=== PATIENT | female | born 1940 | race Caucasian/White ===

== ENCOUNTER 2023-08-26 20:44 | Inpatient (IN) | payer SELFPAY ==
[2023-08-26 16:09] VITALS: BMI 33.6
[2023-08-26 16:13] VITALS: BP 87/67
[2023-08-26 16:49] VITALS: BP 106/65
--- NOTE | 2023-08-26 16:52 | ED.GENMED ---
History of Present Illness
<JAMEL Torre - Last Filed: 08/26/23 18:04>
General
Chief Complaint: Weakness
Source: patient
Exam Limitations: none
Time Seen by Provider: 08/26/23 16:20
Nursing documentation reviewed up to this point in time: agreed with
Travel History
Have you had any contact with someone who has COVID-19?: No
Do you have any symptoms of coronavirus? Fever > 100 degrees, chills, cough, shortness of breath, sore throat, loss of taste or smell, muscle aches, or headache?: No
History of Present Illness
History of Present Illness:
Patient is a 82-year-old female with past medical history of A-fib had the watchman's procedure, anemia edema hypertension hyperlipidemia who presents to the ER for evaluation. Patient reports for the past several days she has had sinus faction
with green drainage from her nose and has done Teladoc. She has not had a fever and is not on antibiotics. She however has been weak for the past 2 to 3 days and is unable to get out of bed. She normally takes care of her daughters who all have
Fragile X syndrome and now she is unable to do so. She feels very weak. She denies any shortness of breath.
Review of Systems
<JAMEL Torre - Last Filed: 08/26/23 18:04>
Review of Systems
Allergies reviewed?: Yes
All Other Systems: ROS reviewed and negative except as documented in HPI and ROS
Constitutional: Reports fatigue; Denies fever or chills
EENT: Reports other (sinus drainage )
Respiratory: Reports no symptoms
Cardiac: Reports no symptoms
ABD/GI: Reports no symptoms
: Reports no symptoms
Musculoskeletal: Reports other (left calf pain )
Skin: Reports no symptoms
Psychiatric: Reports no symptoms
Phy Exam
<JAMEL Torre - Last Filed: 08/26/23 18:04>
General Physical Exam
General Presentation: no apparent distress
General age: appears stated age
General Skin: warm and dry
General Habitus: elderly
General Mental: alert
General Hydration: dry mucous membranes
Cardiovascular Exam
Cardiovascular Exam: irregularly irregular
Pulmonary Exam
Pulmonary Exam: lungs clear and no respiratory distress
Neurological Exam
Neurological Exam: alert
Musculoskeletal Exam
Musculoskeletal Exam: full ROM
Skin Exam
Skin Exam: normal color and warm/dry
Psychiatric Exam
Psychiatric Exam: normal mood/affect
Course
<JAMEL Torre - Last Filed: 08/26/23 18:04>
Orders/Labs/Results
Orders:
Orders
08/26/23 Dinner
Cholesterol Lowering
Cholesterol Lowering: Sodium, 2 Gram
08/26/23 16:50
Electrocardiogram (*1) Urgent
Reason for Study: Tachycardia
08/26/23 16:51
Urinalysis Reflex To Culture Urgent
Date Specimen was Collected: 08/26/23
Time Specimen was Collected: 16:50
08/26/23 17:11
CR Chest - 2 Views Urgent
Comment:
Reason For Exam: weakness
08/26/23 17:15
Venous Doppler Lwr Ext Bilat [US Periph Venous LOWER Ext Vinicio] Urgent
Comment:
Reason For Exam: pain
08/26/23 17:19
0.9% Sodium Chloride 1000 ml [Nss] 1,000 ml IV BOLUS
08/26/23 17:43
Basic Metabolic Panel Urgent
Complete Blood Count/With Diff Urgent
Ferritin Urgent
Comment: ADD ON
Folate Urgent
Comment: ADD ON
Iron Urgent
Comment: ADD ON
Lactic Acid Q4H
Comment: CANCEL 2nd LACTIC ACID IF 1st LACTIC ACID IS LESS THAN 2
Total Iron Binding Urgent
Comment: ADD ON
Vitamin B12 Urgent
Comment: ADD ON
Blood Culture Urgent
TANA Source: Blood/Venous
Specimen Description:
08/26/23 18:00
Electrocardiogram (*1) Stat
Reason for Study: Other
Other Reason for Exam: chest pain
EKG- Treatment ONCE
08/26/23 19:06
Influenza A+B Rapid Molecular Urgent
TANA Source: Nasal Swab
Specimen Description:
08/26/23 19:07
COVID-19 Antigen Urgent
Source: Nasal Swab
08/26/23 19:10
Azithromycin 500 mg/250 ml [Zithromax Infusion] 500 mg in 250 ml IV NOW
CefTRIAXone [Rocephin] 1,000 mg IV NOW STA
Ondansetron Injectable [Zofran] 4 mg IV NOW STA
08/26/23 19:58
Add On- LAB Urgent
Tests Added?: iron, ferritin , tibc, folate b12
08/26/23 19:59
Sputum Culture [Respiratory Culture/Gram Stain] Routine
TANA Source: Sputum
Specimen Description:
08/26/23 20:02
Admit/Transfer Patient As Directed
Co-Sign Provider:
Level of Care: Inpatient admission
Assign to:: Telemetry
Physician / Group: sg mosley
Diagnosis: leukocytosis 2/2 RLL pna, karine 2/2 volume depletion, hypotension 2/2 volume
Reason for Telemetry: Arrhythmia
Date to Stop Telemetry: 08/29/23
Time to Stop Telemetry: 11:00
Reason for Hospitalization: leukocytosis 2/2 RLL pna, karine 2/2 volume depletion, hypotension 2/2 volume
Expected length of stay greater than two midnights?: Yes
ELOS- Estimated Length of Stay in days: 3
I certify the patient meets the requirements for IP care: Yes
Code Status As Directed
Resuscitation Status: Do not resuscitate
Reached after discussion with pt or family/Healthcare POA: Yes
Based on pt advanced directive or healthcare POA form: Yes
Decision communicated with: per pt
DNR Bracelet Application ONCE
08/26/23 20:07
CT Chest W/o Iv Contrast Urgent
Comment:
Reason For Exam: Pneumonia, Hiatal Hernia
08/26/23 20:21
NT-proBNP Urgent
Potassium Urgent
Procalcitonin Urgent
PCT Algorithmm Indication: Sepsis
Troponin I Urgent
Blood Culture Urgent
TANA Source: Blood/Venous
Specimen Description:
08/26/23 23:16
Acetaminophen [Tylenol] 650 mg PO Q4HPRN PRN
Aspirin Low Dose EC [Aspir Low (Enteric Coated)] 81 mg PO HS
08/26/23 23:16
Activity As Directed
Activity Level: With Assistance
Intake/ Output As Directed
Frequency: Per unit guidelines
Vital Signs As Directed
Frequency: Per unit guidelines
Weight As Directed
Frequency: Daily
Pulse Ox/spot Check [RESP] Routine
Quantity: 1
Ot Eval And Treat Routine
Pt Eval And Treat Routine
Activity Level: With Assistance
DX Deep Vein Thrombosis Video Routine
08/27/23 00:28
Cetirizine HCl [Zyrtec] 5 mg PO DAILYPRN PRN
08/27/23 00:30
Atorvastatin [Lipitor] 10 mg PO HS
08/27/23 01:00
Piperacillin/Tazo 2.25 Gram [Zosyn] 2.25 grams in 50 ml IV Q6
08/27/23 06:00
CRP [C-Reactive Protein] IN AM
Complete Blood Count/With Diff IN AM
Comprehensive Metabolic Panel IN AM
ESR [Erythrocyte Sed Rate] IN AM
08/27/23 08:00
Ascorbic Acid [Vitamin C] 1,000 mg PO DAILY
Calcium Carbonate [Oscal Benjamin 500] 500 mg PO DAILY
Cholecalciferol (Vitamin D3) [VITAMIN D3 (cholecalciferol)] 50 mcg PO DAILY
Heparin 5,000 units SC Q12
Pantoprazole [Protonix] 40 mg PO DAILY
Vitamin B Complex with C [B COMPLEX w/VITAMIN C] 1 caplet PO DAILY
08/28/23 06:00
Complete Blood Count/With Diff IN AM
Comprehensive Metabolic Panel IN AM
08/29/23 06:00
Complete Blood Count/With Diff IN AM
Comprehensive Metabolic Panel IN AM
08/29/23 11:00
DC Protocol for Telemetry ONCE
Abnormal Lab Results
08/26/23 08/26/23 08/26/23
16:51 17:43 20:21
WBC 13.3 H 10^3/uL
(4.8-10.8)
RBC 4.02 L 10^6/uL
(4.20-5.40)
Hgb 10.0 L g/dL
(12.0-16.0)
Hct 31.3 L %
(37.0-47.0)
MCV 77.9 L fL
(81.0-99.0)
MCH 24.9 L pg
(27.0-31.0)
MCHC 31.9 L g/dL
(33.0-37.0)
MPV 10.6 H fL
(7.4-10.4)
Abs Immat Gran (auto) 0.1 H 10^3/uL
(0-0.05)
Absolute Neuts (auto) 11.2 H 10^3/uL
(1.4-6.5)
Absolute Lymphs (auto) 1.0 L 10^3/uL
(1.2-3.4)
Absolute Monos (auto) 1.0 H 10^3/uL
(0.1-0.6)
Neutrophils % 84.3 H %
(42.2-75.2)
Lymphocytes % 7.5 L %
(20.5-51.1)
BUN 56 H mg/dl
(7-17)
Creatinine 2.0 H mg/dL
(0.6-1.0)
Glucose 121 H mg/dl
(70-99)
Iron 24 L ug/dl
(37-170)
TIBC 155 L ug/dl
(265-497)
% Saturation 15 L %
(20-50)
Ferritin 516.0 H ng/ml
(11.1-264.0)
Folate > 20.0 H ng/ml
(2.76-20)
Procalcitonin 5.50 H* ng/ml
(0.0-0.25)
Urine Ketones Trace A
(Negative)
Urine Bilirubin 1+ A
(Negative)
08/26/23 17:43
08/26/23 20:21
Vital Signs
Initial and Last Documented VS:
Initial Vital Signs
Temp Pulse Resp BP Pulse Ox
97.4 F 118 22 87/67 94
08/26/23 16:13 08/26/23 16:13 08/26/23 16:13 08/26/23 16:13 08/26/23 16:13
Last Documented Vital Signs
Temp Pulse Resp BP Pulse Ox
97.4 F 114 25 94/63 93
08/26/23 16:13 08/27/23 02:15 08/27/23 02:00 08/26/23 20:01 08/27/23 01:00
<JAMEL Lambert - Last Filed: 08/27/23 03:02>
Orders/Labs/Results
Orders:
Orders
08/26/23 Dinner
Cholesterol Lowering
Cholesterol Lowering: Sodium, 2 Gram
08/26/23 16:50
Electrocardiogram (*1) Urgent
Reason for Study: Tachycardia
08/26/23 16:51
Urinalysis Reflex To Culture Urgent
Date Specimen was Collected: 08/26/23
Time Specimen was Collected: 16:50
08/26/23 17:11
CR Chest - 2 Views Urgent
Comment:
Reason For Exam: weakness
08/26/23 17:15
Venous Doppler Lwr Ext Bilat [US Periph Venous LOWER Ext Vinicio] Urgent
Comment:
Reason For Exam: pain
08/26/23 17:19
0.9% Sodium Chloride 1000 ml [Nss] 1,000 ml IV BOLUS
08/26/23 17:43
Basic Metabolic Panel Urgent
Complete Blood Count/With Diff Urgent
Ferritin Urgent
Comment: ADD ON
Folate Urgent
Comment: ADD ON
Iron Urgent
Comment: ADD ON
Lactic Acid Q4H
Comment: CANCEL 2nd LACTIC ACID IF 1st LACTIC ACID IS LESS THAN 2
Total Iron Binding Urgent
Comment: ADD ON
Vitamin B12 Urgent
Comment: ADD ON
Blood Culture Urgent
TANA Source: Blood/Venous
Specimen Description:
08/26/23 18:00
Electrocardiogram (*1) Stat
Reason for Study: Other
Other Reason for Exam: chest pain
EKG- Treatment ONCE
08/26/23 19:06
Influenza A+B Rapid Molecular Urgent
TANA Source: Nasal Swab
Specimen Description:
08/26/23 19:07
COVID-19 Antigen Urgent
Source: Nasal Swab
08/26/23 19:10
Azithromycin 500 mg/250 ml [Zithromax Infusion] 500 mg in 250 ml IV NOW
CefTRIAXone [Rocephin] 1,000 mg IV NOW STA
Ondansetron Injectable [Zofran] 4 mg IV NOW STA
08/26/23 19:58
Add On- LAB Urgent
Tests Added?: iron, ferritin , tibc, folate b12
08/26/23 19:59
Sputum Culture [Respiratory Culture/Gram Stain] Routine
TANA Source: Sputum
Specimen Description:
08/26/23 20:02
Admit/Transfer Patient As Directed
Co-Sign Provider:
Level of Care: Inpatient admission
Assign to:: Telemetry
Physician / Group: sg mosley
Diagnosis: leukocytosis 2/2 RLL pna, karine 2/2 volume depletion, hypotension 2/2 volume
Reason for Telemetry: Arrhythmia
Date to Stop Telemetry: 08/29/23
Time to Stop Telemetry: 11:00
Reason for Hospitalization: leukocytosis 2/2 RLL pna, karine 2/2 volume depletion, hypotension 2/2 volume
Expected length of stay greater than two midnights?: Yes
ELOS- Estimated Length of Stay in days: 3
I certify the patient meets the requirements for IP care: Yes
Code Status As Directed
Resuscitation Status: Do not resuscitate
Reached after discussion with pt or family/Healthcare POA: Yes
Based on pt advanced directive or healthcare POA form: Yes
Decision communicated with: per pt
DNR Bracelet Application ONCE
08/26/23 20:07
CT Chest W/o Iv Contrast Urgent
Comment:
Reason For Exam: Pneumonia, Hiatal Hernia
08/26/23 20:21
NT-proBNP Urgent
Potassium Urgent
Procalcitonin Urgent
PCT Algorithmm Indication: Sepsis
Troponin I Urgent
Blood Culture Urgent
TANA Source: Blood/Venous
Specimen Description:
08/26/23 23:16
Acetaminophen [Tylenol] 650 mg PO Q4HPRN PRN
Aspirin Low Dose EC [Aspir Low (Enteric Coated)] 81 mg PO HS
08/26/23 23:16
Activity As Directed
Activity Level: With Assistance
Intake/ Output As Directed
Frequency: Per unit guidelines
Vital Signs As Directed
Frequency: Per unit guidelines
Weight As Directed
Frequency: Daily
Pulse Ox/spot Check [RESP] Routine
Quantity: 1
Ot Eval And Treat Routine
Pt Eval And Treat Routine
Activity Level: With Assistance
DX Deep Vein Thrombosis Video Routine
08/27/23 00:28
Cetirizine HCl [Zyrtec] 5 mg PO DAILYPRN PRN
08/27/23 00:30
Atorvastatin [Lipitor] 10 mg PO HS
08/27/23 01:00
Piperacillin/Tazo 2.25 Gram [Zosyn] 2.25 grams in 50 ml IV Q6
08/27/23 06:00
CRP [C-Reactive Protein] IN AM
Complete Blood Count/With Diff IN AM
Comprehensive Metabolic Panel IN AM
ESR [Erythrocyte Sed Rate] IN AM
08/27/23 08:00
Ascorbic Acid [Vitamin C] 1,000 mg PO DAILY
Calcium Carbonate [Oscal Benjamin 500] 500 mg PO DAILY
Cholecalciferol (Vitamin D3) [VITAMIN D3 (cholecalciferol)] 50 mcg PO DAILY
Heparin 5,000 units SC Q12
Pantoprazole [Protonix] 40 mg PO DAILY
Vitamin B Complex with C [B COMPLEX w/VITAMIN C] 1 caplet PO DAILY
08/28/23 06:00
Complete Blood Count/With Diff IN AM
Comprehensive Metabolic Panel IN AM
08/29/23 06:00
Complete Blood Count/With Diff IN AM
Comprehensive Metabolic Panel IN AM
08/29/23 11:00
DC Protocol for Telemetry ONCE
Abnormal Lab Results
08/26/23 08/26/23 08/26/23
16:51 17:43 20:21
WBC 13.3 H 10^3/uL
(4.8-10.8)
RBC 4.02 L 10^6/uL
(4.20-5.40)
Hgb 10.0 L g/dL
(12.0-16.0)
Hct 31.3 L %
(37.0-47.0)
MCV 77.9 L fL
(81.0-99.0)
MCH 24.9 L pg
(27.0-31.0)
MCHC 31.9 L g/dL
(33.0-37.0)
MPV 10.6 H fL
(7.4-10.4)
Abs Immat Gran (auto) 0.1 H 10^3/uL
(0-0.05)
Absolute Neuts (auto) 11.2 H 10^3/uL
(1.4-6.5)
Absolute Lymphs (auto) 1.0 L 10^3/uL
(1.2-3.4)
Absolute Monos (auto) 1.0 H 10^3/uL
(0.1-0.6)
Neutrophils % 84.3 H %
(42.2-75.2)
Lymphocytes % 7.5 L %
(20.5-51.1)
BUN 56 H mg/dl
(7-17)
Creatinine 2.0 H mg/dL
(0.6-1.0)
Glucose 121 H mg/dl
(70-99)
Iron 24 L ug/dl
(37-170)
TIBC 155 L ug/dl
(265-497)
% Saturation 15 L %
(20-50)
Ferritin 516.0 H ng/ml
(11.1-264.0)
Folate > 20.0 H ng/ml
(2.76-20)
Procalcitonin 5.50 H* ng/ml
(0.0-0.25)
Urine Ketones Trace A
(Negative)
Urine Bilirubin 1+ A
(Negative)
08/26/23 17:43
08/26/23 20:21
Leukocytosis. H/H low. Anemia, Acute renal insufficiency. Lactic acid normal at 1.5, Urine negative for infection.
Vital Signs
Initial and Last Documented VS:
Initial Vital Signs
Temp Pulse Resp BP Pulse Ox
97.4 F 118 22 87/67 94
08/26/23 16:13 08/26/23 16:13 08/26/23 16:13 08/26/23 16:13 08/26/23 16:13
Last Documented Vital Signs
Temp Pulse Resp BP Pulse Ox
97.4 F 114 25 94/63 93
08/26/23 16:13 08/27/23 02:15 08/27/23 02:00 08/26/23 20:01 08/27/23 01:00
<JAMEL Torre - Last Filed: 08/26/23 18:04>
MDM/Problems Addressed
Differential Diagnosis Includes:
not limited to: Dehydration sepsis pneumonia less likely DVT UTI
MDM/Problems Addressed:
patient is a 82-year-old female who presents for weakness for the past several days. She has recently reported she has had a sinus infection. 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 She
denies any fevers however. She does have a history of A-fib and has a watchman's procedure. will order labs/urine/us. Ultrasound ordered as patient complains of left calf pain though no obvious swelling on exam. She appears dehydrated she has
been given a liter of fluids and per history CHF. Care of patient this time transferred to JAMEL Chaudhry
<JAMEL Lambert - Last Filed: 08/27/23 03:02>
MDM/Problems Addressed
MDM/Problems Addressed:
patient is a 82-year-old female who presents for weakness for the past several days. She has recently reported she has had a sinus infection. 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 She
denies any fevers however. She does have a history of A-fib and has a watchman's procedure. will order labs/urine/us. Ultrasound ordered as patient complains of left calf pain though no obvious swelling on exam. She appears dehydrated she has
been given a liter of fluids and per history CHF. Care of patient this time transferred to JAMEL Carroll
Into see patient. Explained that her blood work shows that her Kidney function is elevated and her Chest x-ray shows possible bilateral Pneumonia Vs effusion. Will start on antibiotics and admit.
<JAMEL Lambert - Last Filed: 08/27/23 03:02>
*Radiology
Radiology exam reviewed: preliminary read by ED provider (Chest- Bilateral Pneumonia vs. Pleural effusion. ) and radiology read reviewed (US- No sonographic evidence for lower extremity venous thrombosis. )
*Critical Care Note
Total Time (30-74mins, 75-104mins- exclusive of procedures): Not Applicable
ED Attending Note
<JAMEL Torre - Last Filed: 08/26/23 18:04>
-
Portions of this chart may have been created with voice recognition software.� Occasional wrong word or��sound alike� substitutions may have occurred due to the inherent limitations of voice recognition software.
Discharge Plan
Departure
Patient Disposition: Admit
Date of Disposition: 08/26/23
Time of Disposition: 19:15
Admit to: Telemetry
Presentation/result/management discussed w/ accepting MD/DO: Hospitalist
Patient with high blood pressure during this ER visit?: No
Condition: Good
Discharge Problem:
Bilateral Pneumonia Vs Pleural effusion, Acute renal insufficiency
Interventions
Interventions:
*Risk Screen - Suicide Last Done: 08/26/23 16:13
*General Assessment Last Done: 08/26/23 16:13
*Neglect/Abuse Screening Last Done: 08/26/23 16:13
ED- Fall Risk Assessment Last Done: 08/26/23 16:55
*ED COVID-19 Vaccine History Last Done: 08/26/23 16:13
ED- Cardiac Assessment Last Done: 08/26/23 16:55
ED- Neurological Assessment Last Done: 08/26/23 16:55
ED- Pulmonary Assessment Last Done: 08/26/23 16:55
[2023-08-26 17:00] VITALS: BP 112/74
[2023-08-26 17:04] LABS: Urine Albumin Trace (Neg - Trace); Urine Bilirubin 1+ (Negative); Urine Character Slightly Cloudy (Clear); Urine Color Yellow; Urine Glucose Negative (Negative); Urine Ketone Trace (Negative); Urine Leukocyte Negative (Negative); Urine Nitrite Negative (Negative); Urine Occult Blood Negative (Negative); Urine Urobilinogen 1+ (Neg - 1+)
[2023-08-26 17:50] LABS: % Basophils 0.2 % (0-2); % Immature Granulocytes 0.5 % (0-0.5); % Lymphocytes 7.5 % (20.5-51.1); % Monocytes 7.5 % (1.7-9.3); % Neutrophils 84.3 % (42.2-75.2); Absolute Immature Granulocytes 0.1 10^3/uL (0-0.05); Absolute Neutrophils 11.2 10^3/uL (1.4-6.5); Hematocrit 31.3 % (37.0-47.0); Mean Corp Hgb Conc. 31.9 g/dL (33.0-37.0); Mean Corpuscular Hgb 24.9 pg (27.0-31.0); Mean Corpuscular Volume 77.9 fL (81.0-99.0); Mean Platelet Volume 10.6 fL (7.4-10.4); Nucleated Red Blood Cells % 0 %; Platelet Count 328 10^3/uL (130-400); Red Blood Cell Count 4.02 10^6/uL (4.20-5.40); Red Cell Dist. Width 14.2 % (11.5-14.5); White Blood Cell Count 13.3 10^3/uL (4.8-10.8)
[2023-08-26] MEDS: NSS 1000 IV (17:56)
[2023-08-26 18:04] LABS: Lactic Acid 1.5 mmol/L (0.7-2.0)
[2023-08-26 18:06] LABS: Blood Urea Nitrogen 56 mg/dl (7-17); Calcium 8.8 mg/dl (8.4-10.2); Carbon Dioxide 23 mmol/L (22-30); Chloride 102 mmol/L (98-107); Estimated Creatinine Clearance 21 ml/min; Glucose 121 mg/dl (70-99); Sodium 137 mmol/L (135-145); eGFR 24.33
[2023-08-26 19:05] VITALS: BP 110/59
--- NOTE | 2023-08-26 19:30 | HPS.HSE ---
Addendum entered and electronically signed by Eduardo Payton DO 08/26/23 21:50:
Patient seen and examined independently. Agree with findings and plan as set forth by JAMEL Guzman.
Patient is an 82y F with PMH significant for A-Fib, hypertension and CKD who presents to ED complaining of cough and nasal congestion for the past several days. Patient completed a telehealth visit and was started on azithromycin of which she
has completed 4/5 days. Patient has been caring for her daughter who recently underwent joint replacement. She has become progressively more weak and ultimately presented to the ED today for evaluation.
Patient also complains of pain in both legs - L > R. She denies any recent trauma, injury, fall, etc. She has a prior history of R ankle ORIF with retained hardware.
Ass:
RLL Pneumonia
Sepsis secondary to the above
Large Hiatal Hernia
Hypotension secondary to sepsis v hypovolemia
JETHRO on CKD III
Paroxysmal A-Fib s/p Watchman's Device
Bilateral LE Pain
DJD
Chronic Lymphedema
Chronic Iron Deficiency Anemia
Plan:
Admit for further evaluation and treatment.
Patient presents with leukocytosis, tachycardia and R base pneumonia on imaging.
BP low in the ED - responsive to fluids thus far.
IV abx, IVFs, supportive care.
Follow-up culture results.
Follow for clinical improvement.
Large hiatal hernia on CT with R shift of mediastinum.
No significant pain syndrome, heartburn, etc - consider Surgery evaluation.
Follow for improvement in renal function / changes in Hgb / etc.
PT / OT, pain control efforts for leg pain.
Original Note:
Family Physician
-
Family Physician: PHYSICIAN PRIVATE
Chief Complaint
-
Generalized weakness, nasal drainage, productive cough green in color
History of Present Illness
82-year-old female complaining of green drainage from her nose for the past several days. She reports she had a appointment with a telemetry doc and was placed on Z-Darian 4 days ago she has 1 day left. She also reports coughing up green in color for
the past 5 days. Over the past 2 to 3 days she is weak and unable to get out of bed she was so weak today. She is also complaining of pain from her knee down and right foot pain she believes from her arthritis. She reports for the past 2 weeks she
has been taking care of her daughter who had a knee replacement and was staying with her temporarily. She denies fever, chest pain, palpitations, headache, sore throat, abdominal pain, nausea, vomiting, diarrhea, urinary symptoms. SHe has past
medical history of A-fib, watchman's procedure, anemia, HTN, HLD, peripheral lymphedema , CKD 3B, iron deficiency anemia, osteoarthritis, uterine fibroids
Medical History
Past Medical History
Past Medical History: Reports Other
Additional Past Medical History:
A-fib,/watchman's procedure
Iron deficiency anemia
HTN
HLD
peripheral lymphedema
CKD 3B
osteoarthritis
uterine fibroids with removal
Past Surgical History: Reports Other
Additional Past Surgical History:
Tonsillectomy adenoidectomy 1947
Uterine fibroids removed
Fracture ankle right repair
Hammertoe repair x 3
Arthroscopy right and left knee
Right knee replacement 2004
Left knee replacement 2011
Arthrodesis of the left leg 2014
Left shoulder replacement 2017, 2019
Umbilical hernia repair and tummy tuck
Bladder lift
Cataract extraction left eye
Right total hip replacement December 2020
Right shoulder replacement 2022
Social History
Tobacco: Non-smoker
Alcohol: None
Drug: None
Personal: Single
Living: Alone
Employment: Retired
Family History
Family History: Other (4 daughters with fragile X syndrome)
Allergies / Home Medications
Allergies reflects when Allergies were last updated in [facility].
Home Medications with original date entered in [facility]
Allergy/Medication List:
Allergies
Allergy/AdvReac Type Severity Reaction Status Date / Time
cefuroxime AdvReac nausea/vomi Verified 08/26/23 16:12
ting
codeine AdvReac Nausea / Verified 08/26/23 16:12
Vomiting
fentanyl AdvReac Nausea / Verified 08/26/23 16:12
Vomiting
hydrocodone AdvReac Nausea / Verified 08/26/23 16:12
Vomiting
hydromorphone [From Dilaudid] AdvReac Nausea / Verified 08/26/23 16:12
Vomiting
levofloxacin AdvReac nausea/vomi Verified 08/26/23 16:12
ting
meperidine [From Demerol] AdvReac Nausea / Verified 08/26/23 16:12
Vomiting
morphine AdvReac nausea/vomi Verified 08/26/23 16:12
ting
oxycodone AdvReac Nausea / Verified 08/26/23 16:12
Vomiting
dust Allergy eyes itchy Uncoded 08/26/23 16:12
Home Medications
ascorbic acid (vitamin C) 500 mg tablet (Vitamin C) 1,000 mg PO DAILY ##0 12/17/20
cholecalciferol (vitamin D3) 25 mcg (1,000 unit) tablet 50 mcg PO DAILY ##0 12/17/20
labetalol 200 mg tablet 400 mg PO BID ##0 12/17/20
levocetirizine 5 mg tablet (Xyzal) 5 mg PO DAILYPRN PRN allergies 12/17/20
omeprazole 20 mg capsule,delayed release 20 mg PO DAILY 12/17/20
simvastatin 20 mg tablet 20 mg PO HS 12/17/20
vitamin B complex 1 tab PO DAILY 12/17/20
calcium carbonate 600 mg PO DAILY 12/21/20
amlodipine 5 mg tablet 5 mg PO DAILY ##0 01/11/21
aspirin 81 mg tablet,delayed release 81 mg PO HS 08/26/23
azithromycin 250 mg tablet 250 mg PO DAILY 08/26/23
hydrochlorothiazide 12.5 mg capsule 12.5 mg PO DAILY 08/26/23
Review of Systems
-
History Source: Patient
A 12 point ROS was completed and negative except as noted: Yes
Constitutional: Reports Fatigue; Denies Fever or Chills
EENT: Reports Runny Nose; Denies Sore Throat
Respiratory: Reports Cough (Green in color) and Trouble Breathing
Cardiac: Denies Chest Pain, Diaphoresis, Palpitations or Syncope
Abdomen/GI: Denies Abdominal Pain, Nausea, Vomiting, Diarrhea, Constipated, Bloody Stools or Black Stools
: Denies Dysuria, Frequency, Flank Pain, Incontinence, Difficulty Voiding or Urgency
Musculoskeletal: Reports Edema (Chronic leg lymphedema); Denies Joint Pain
Skin: Denies Itching or Rash
Neurological: Denies Dizzy, Headache or Weakness
Endocrine: Reports No Symptoms
Hematologic/Lymphatic: Reports No Symptoms
Psych: Reports Calm
Physical Exam
Vital Signs
Vital Signs
Temp Pulse Resp BP Pulse Ox
97.4 F 102 20 106/65 93
08/26/23 16:13 08/26/23 16:49 08/26/23 16:49 08/26/23 16:49 08/26/23 16:21
Physical Exam
General: Conversant and Other (Generalized weakness); No Pain or Fever
HEENT: NormoCephalic, Anicteric, Moist mucous membranes, PERRLA, [place] Conjunctivae and No Ptosis
Respiratory: Other (Diminished bilaterally with slight expiratory wheeze); No Wheezes or Rales
Cardiac: S1/S2, Irregular Rhythm (A-fib 111 bpm on monitor) and Peripheral Edema (Chronic leg lymphedema); No Murmur, Rub, Gallop or JVD
Breast: Deferred by me
GI: Soft, Non Tender, Non Distended, Normal Bowel Sounds and No Hepatosplenomegaly
Rectal: Deferred by Provider
Genito-urinary: Deferred by me
Musculoskeletal: No Clubbing, No Cyanosis, Edema, Left Lower Extremity (Chronic leg lymphedema) and Edema, Right Lower Extremity (Chronic leg lymphedema); No Edema, Left Upper Extremity or Edema, Right Upper Extremity
Skin: Warm and Dry; No Rash
Neuro: AO x 3 (But with generalized weakness), No Motor Deficits, Cranial Nerves Intact and No Sensory Deficits; No Slurred Speech, Facial Droop or Tremors
Psych: Calm
Laboratory Results
-
08/26/23 17:43
08/26/23 17:43
Laboratory Results
Lactic Acid Cancelled 08/26/23 21:15
Total Bilirubin Cancelled 08/26/23 17:43
AST Cancelled 08/26/23 17:43
ALT Cancelled 08/26/23 17:43
Alkaline Phosphatase Cancelled 08/26/23 17:43
Data Reviewed
-
Diagnostic Radiology: Report Reviewed by me
Lab Data: Labs Reviewed by me
Impression/Plan
-
Impression/plan:
Admit to telemetry
#Generalized weakness secondary to poss Right lower lobe Pna
#Recent sinus infection
-Completed 4 days out of 5 Z-Darian
93% RA
WBC 13 with left shift, afebrile, 106/65, HR 102
- COVID/FLU Neg , lactic acid normal
-Check BNP
-IV Rocephin/Zithromax given in ER tolerated rocephin
- will Start Iv Zosyn
-Check sputum culture, blood cultures x 2, procal
-Check Ct Chest
CXR:
1. MODERATE CARDIOMEGALY without evidence for acute pulmonary edema.
2. Moderate volume loss in the right lung with left to right mediastinal shift.
3. Moderate subpleural airspace opacity in the right lower lobe which is probably scarring or atelectasis.
4. Small right pleural effusion or pleural thickening in the inferior right hemithorax.
5. Moderate to large paraesophageal hiatal hernia.
# Hypotension/HTN�benign likely secondary to volume depletion
78/55 >106/65-was given 1 L NSS in ER
-Hold HCTZ, amlodipine 5 mg daily
-Hold labetalol 40 mg twice daily
- cont Iv Nss 80 cc/hr
#JETHRO on CKD stage IIIb�4
Creat 2, creat 1.27 November 2020
-IV NSS 1 L given in ER
-Follow BMP
-Hold HCTZ
# Chronic peripheral lymphedema
-PT/OT/case management eval
Peripheral ultrasounds bilateral negative for DVT
#Left leg pain/right foot pain likely secondary to OA
#Osteoarthritis hx
-Continue PATTERN GENERATOR OPERATOR Tylenol as needed
-Continue vitamin D3/vitamin C
- check ESR,CRP
#A-fib/Watchman device
-Hold labetalol 40 mg twice daily due to hypotension
-Continue aspirin 81 mg at bedtime
#Chronic iron deficiency anemia
Hgb 10, MCV 77.9-appears near baseline from 2020
-Will check iron panel, B12, folate
-Continue B complex
#GERD
-Continue omeprazole 20 mg daily, calcium carbonate 600 mg daily
#HLD
-Continue simvastatin 20 mg at bedtime
#Uterine fibroids with removal
DVT prophylaxis
Subcu heparin
DNR per patient
[2023-08-26 19:45] LABS: COVID-19 Antigen Negative (Negative)
[2023-08-26] MEDS: ZOFRAN 4 MG IV (19:59)
[2023-08-26] MEDS: ROCEPHIN 1000 MG IV (19:59)
[2023-08-26] MEDS: ZITHROMAX INFUSION 250 IV (20:00)
[2023-08-26 20:01] VITALS: BP 94/63
[2023-08-26 20:53] LABS: NT-proBNP 8350 pg/ml; Troponin I 0.016 ng/ml
[2023-08-26 21:04] LABS: Potassium 4.4 mmol/L (3.5-5.1)
[2023-08-26 21:12] LABS: Iron 24 ug/dl (37-170)
[2023-08-26 21:22] LABS: Percent Saturation 15 % (20-50); Total Iron Binding Capacity 155 ug/dl (265-497)
[2023-08-26 22:14] LABS: Folate > 20.0 ng/ml (2.76-20); Vitamin B12 913 pg/ml (239-931)
[2023-08-27] VITALS (12 sets, daily range): BP systolic 91–128; BP diastolic 40–100
[2023-08-27] MEDS: ASPIR LOW (ENTERIC COATED) 81 MG PO (01:09)
[2023-08-27] MEDS: ZOSYN 50 IV ×5 (01:09→23:35)
[2023-08-27] MEDS: LIPITOR 10 MG PO ×2 (01:09→21:31)
[2023-08-27 06:51] LABS: % Basophils 0.2 % (0-2); % Eosinophils 0.2 % (0-6); % Immature Granulocytes 0.6 % (0-0.5); % Lymphocytes 11.3 % (20.5-51.1); % Monocytes 7.4 % (1.7-9.3); % Neutrophils 80.3 % (42.2-75.2); Absolute Immature Granulocytes 0.1 10^3/uL (0-0.05); Absolute Lymphocytes 1.4 10^3/uL (1.2-3.4); Absolute Monocytes 0.9 10^3/uL (0.1-0.6); Mean Corp Hgb Conc. 32.9 g/dL (33.0-37.0); Mean Corpuscular Hgb 25.2 pg (27.0-31.0); Mean Corpuscular Volume 76.6 fL (81.0-99.0); Mean Platelet Volume 10.7 fL (7.4-10.4); Nucleated Red Blood Cells % 0 %; Platelet Count 361 10^3/uL (130-400); Red Blood Cell Count 2.74 10^6/uL (4.20-5.40); Red Cell Dist. Width 13.9 % (11.5-14.5); White Blood Cell Count 12.5 10^3/uL (4.8-10.8)
[2023-08-27 07:06] LABS: Hemoglobin 6.9 g/dL (12.0-16.0)
[2023-08-27 07:22] LABS: ALT (SGPT) 29 U/L (0-35); AST (SGOT) 61 U/L (14-36); Albumin 2.7 g/dl (3.5-5.0); Alkaline Phosphatase 153 U/L (38-126); Blood Urea Nitrogen 61 mg/dl (7-17); Calcium 8.7 mg/dl (8.4-10.2); Carbon Dioxide 17 mmol/L (22-30); Chloride 106 mmol/L (98-107); Estimated Creatinine Clearance 21 ml/min; Glucose 103 mg/dl (70-99); Sodium 138 mmol/L (135-145); Total Bilirubin 0.9 mg/dl (0.2-1.3); Total Protein 5.3 g/dl (6.3-8.2); eGFR 24.33
[2023-08-27 07:48] LABS: C-Reactive Protein > 270.00 mg/L (0.0-10.00)
[2023-08-27 07:52] LABS: Erythrocyte Sed Rate 14 mm/hour (0-20)
[2023-08-27] MEDS: HEPARIN SC (08:30)
--- NOTE | 2023-08-27 09:38 | W.PN.HOSP.TC ---
Addendum entered and electronically signed by Michel Salmeron MD 08/27/23 23:36:
I saw and evaluated the patient. I reviewed the resident�s note and agree with findings and plan as documented in the resident�s note. Omi complains of b/l knee joint pain left>right. states its chronic. notes melena recently. Full 12 point ROS
reviewed and negative except as documented Exam: Vitals reviewed in chart GEN- NAD heart RRR lungs clear abd soft LE right knee NTTP left knee mild swelling noted no redness or warmth
# Sepsis
Secondary to right lower lobe pneumonia
chest CT- 08/25- Small right and tiny left pleural effusions.
Mild right lower lobe consolidation which may represent atelectasis or pneumonia
Moderate left lower lobe atelectasis versus scarring.
Large hiatal hernia. Stable
- Continue IV fluids
- DC Zosyn change to rocephin/doxy in am
-Follow CBC
-Follow temperature curve
- leukocytosis resolving
#Right lower lobe pneumonia
-Continue antibiotics
#Acute on chronic anemia h/o melena steroid use
- Hemoglobin dropped to 6.9 from 10 overnight-lab error.
- Repeat H&H showed normal baseline hemoglobin 10.2
- c/s GI- for EGD in am
- NPO pMN
- cont PPI gtt per GI
#Hypotension
-Secondary to sepsis
-Continue fluids
-Hold hydrochlorothiazide
#left knee pain
-History of knee replacement
-check knee x-ray
- doubt septic joint
#JETHRO on CKD stage III
- cr @ 2.0 unknown baseline
- Likely prerenal
- Continue fluids
- Hold hydrochlorothiazide
#Chronic peripheral edema
-Bilateral peripheral vascular ultrasound negative for DVT
#A-fib status post Watchman device
-Hold labetalol due to hypotension
-hold aspirin 81 mg
#GERD
Continue PPI gtt, calcium carbonate
#Hyperlipidemia
atorvastatin
#HTN
Hold labetalol due to hypotension
DVT prophylaxis heparin
CODE STATUS: Full code
Anticipated Discharge: > 48 hours
Time spent coordinating care, review of plan of care with resident, review of records, med rec, consults, notes, labs, rads, d/w nursing � 59 mins
Original Note:
Today's Communication/Plan
-
Continue antibiotics
Continue fluids
Hold antihypertensives
Assessment / Plan
Assessment / Plan
Acute problems
Sepsis
Right lower lobe pneumonia
Acute on chronic anemia
Hypotension
left knee pain
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
Chronic peripheral edema
A-fib status post Watchman device
chronic iron deficiency anemia
GERD
Hyperlipidemia
#Sepsis
Secondary to right lower lobe pneumonia
Leukocytosis, hypotension, tachycardia, tachypnea on presentation
cxr: 08/26/2023: MODERATE CARDIOMEGALY without evidence for acute pulmonary edema. Moderate volume loss in the right lung with left to right mediastinal shift. Moderate subpleural airspace opacity in the right lower lobe which is probably scarring
or atelectasis. Small right pleural effusion or pleural thickening in the inferior right hemithorax. Moderate to large paraesophageal hiatal hernia.
- Continue IV fluids
- Continue Zosyn
-Follow CBC
-Follow temperature curve
#Right lower lobe pneumonia
-Continue antibiotics
#Acute on chronic anemia
Hemoglobin dropped to 6.9 from 10 overnight.
Repeat H&H showed normal baseline hemoglobin 10.2
-Likely lab error
-Stop every 4 H&H
#Hypotension
-Secondary to sepsis
-Continue fluids
-Hold hydrochlorothiazide
#left knee pain
-History of knee replacement
- knee x-ray
#JETHRO on CKD stage III
-Likely prerenal
-Continue fluids
-Hold hydrochlorothiazide
#Chronic peripheral edema
-Bilateral peripheral vascular ultrasound negative for DVT
#A-fib status post Watchman device
-Hold labetalol due to hypotension
-Continue aspirin 81 mg
#chronic anemia
Chronic, at baseline
Iron panel: likely component of anemia of chronic disease
Recent history of dark stools
GI consult: Clear liquid diet, pending EGD tomorrow
#GERD
Continue omeprazole, calcium carbonate
#Hyperlipidemia
atorvastatin
#HTN
Hold labetalol due to hypotension
DVT prophylaxis heparin
CODE STATUS: Full code
Anticipated Discharge: > 48 hours
Subjective/Interval History
-
Date of Service: August 27, 2023
Complains of pain in left knee and leg, and generalized weakness
Pt states she was prescribed 5-day course of prednisone for respiratory symptoms within the last week. Noticed dark stools after 3 days of steroid therapy. Stop steroid therapy and dark stools resolved.
Objective Data
-
Labs:
Laboratory Results
08/27/23
06:29
WBC 12.5 H
Hgb 6.9 L* D
Hct 21.0 L
Plt Count 361
Sodium 138
Potassium 4.0
Chloride 106
Carbon Dioxide 17 L
BUN 61 H
Creatinine 2.0 H
Glucose 103 H
Calcium 8.7
Total Bilirubin 0.9
AST 61 H
ALT 29
Alkaline Phosphatase 153 H
Vital Signs:
Vital Signs
Temp Pulse Resp BP Pulse Ox
97.4 F 102 21 97/68 95
08/26/23 16:13 08/27/23 06:42 08/27/23 06:42 08/27/23 06:42 08/27/23 06:42
Review of Systems
-
History Source: Patient
Constitutional: Reports Fatigue
EENT: Reports Hearing Loss (Right ear)
Respiratory: Reports Cough
Cardiac: Reports No Symptoms; Denies Chest Pain, Palpitations or Syncope
Abdomen/GI: Reports No Symptoms; Denies Abdominal Pain, Nausea, Vomiting, Diarrhea, Constipated or Black Stools
Genitourinary: Reports No Symptoms; Denies Dysuria, Difficulty Voiding or Bleeding
Musculoskeletal: Reports Joint Pain (Left knee) and Edema (Bilateral lower extremity edema)
Neuro: Denies Dizzy or Headache
Physical Exam
-
General: Other (Appears to be in mild discomfort)
HEENT: Normocephalic, Atraumatic, Anicteric and Other (Left ear with cerumen obscuring tympanic membrane, right ear with fleshy obstruction of auditory canal); Negative Moist Mucous Membranes
Respiratory: Other (Right lower lobe crackles, reduced lung sounds bilaterally)
Cardiac: S1/S2, Irregular Rhythm and Tachycardic
GI: Soft, Nontender, Nondistended and Normal Bowel Sounds
Genito-urinary: Other (PureWick catheter)
Musculoskeletal: No Clubbing, No Cyanosis, Edema, Right Lower Extrem, Edema, Left Lower Extrem and Other (Left knee, swollen, tender, slightly warm to the touch)
Skin: Warm and Dry; Negative Rash, Ulcers or Jaundice
Neuro: Awake, Alert and Oriented
Psych: Calm
[2023-08-27] MEDS: B COMPLEX w/VITAMIN C 1 CAPLET PO (10:24)
[2023-08-27] MEDS: PROTONIX 40 MG PO (10:25)
[2023-08-27] MEDS: OSCAL CAL 500 500 MG PO (10:25)
[2023-08-27] MEDS: VITAMIN D3 (cholecalciferol) 50 MCG PO (10:26)
[2023-08-27] MEDS: VITAMIN C 1000 MG PO (10:26)
[2023-08-27] MEDS: NSS 1000 IV ×2 (10:28→18:24)
--- NOTE | 2023-08-27 10:49 | CON.GI ---
Addendum entered and electronically signed by Paco Wood MD 08/27/23 12:52:
Patient seen and examined, agree with nurse practitioner note. Patient is an 82-year-old female with longstanding history of anemia who presents with hypotension and shortness of breath. CT scan shows large hiatal hernia along with probable
pneumonia. She was initially hypotensive the did respond to fluids. Her hemoglobin on admission was 10 with a drop to 6.9, the repeat without transfusion was 10.2. She had noticed black stools recently when she was on prednisone for cough and
sinus symptoms though has been intermittent. Her last endoscopy and colonoscopy were at [facility] on about 6 years ago by report. She denies any dysphagia, vomiting, abdominal pain. On exam she has no abdominal tenderness. At this point the
hemoglobin in the sixes was likely lab error, as without transfusion is around 10. She does have hiatal hernia, and noticed melena on steroids, with chronic iron deficiency, likely Ajit's erosions though given melena and hypotension on admission
we will plan EGD tomorrow as she ate breakfast today. Will continue supportive care for her pneumonia and pulmonary issues.
Addendum entered and electronically signed by JAMEL Mims 08/27/23 12:27:
also discussed if EGD neg consider colonoscopy
Addendum entered and electronically signed by JAMEL Mims 08/27/23 12:23:
t/c transfusion-- repeat hbg to be completed soon. CRP>270, procal 5.5
Original Note:
Consultation
-
Date/Time Consultation Requested: 08/27/23 1000
Date/Time Consultation Performed: 08/27/23 1040
Requesting Provider: Yenni Griffin MD
Performing Provider: JAMEL Levy, Denver Wood MD
Reason for Consultation: anemia
Medical History
Chief Complaint / HPI
Chief Complaint: black stools, leg pain
History of Present Illness:
Pt is a 82yo with long standing iron deficiency anemia, large HH, CKD, HTN, hypercholesterolemia, lymphadenopathy, CKD, osteoarthritis, uterine fibroid with follow with Dr. Terrell from Hematology at [place] and last GI follow with [facility]. She
now presents with recent sinus symptoms with antibiotic and steroid treatment. She admits to onset of black stool with steroid use. She phone her pharmacy for side effects and recommend review with PCP. She now presents 6/ with cough and
congestion with CT on admission with concern for atelectasis vs PNA and large HH. On admission hbg 10 with drop to 6.9 after admission.
Pt states after black stools with steroids stool then did turn back to brown. Pt did have some nausea also with antibiotics. hx GERD on chronic PPI. She denies dysphagia, vomiting, abdominal pain, diarrhea, constipation or red blood in stools.
No NSAID use. Last EGD/colon about 6 years ago.
Past Medical History
Past Medical History: Arrhythmias (afib with prior watchman), HTN, Hypercholesterolemia, Renal Failure (CKD) and Other (iron deficiency anemia with hx iron infusions, peripheral lymphedema, CKD, osteoarthritis, uterine fibroids)
Past Surgical History: Orthopedic (knee arthroscopy, R - TKR, left shoulder repair 2017 and 2019 right TKR, right shoulder replacement ), Tonsilectomy and Other (uterine fibroid removal, hammertoe repair, umbilical hernia repair and tummy tuck,
bladder lift, cararacts of eyes)
Social History
Tobacco: Non-Smoker
Alcohol: Occasional (minimal )
Drug: None
Living: Alone
Family History
Family History: Other (no family hx colon CA or polyps )
Allergies / Home Medications
Allergy/AdvReac Type Severity Reaction Status Date / Time
cefuroxime AdvReac nausea/vomi Verified 08/26/23 16:12
ting
codeine AdvReac Nausea / Verified 08/26/23 16:12
Vomiting
fentanyl AdvReac Nausea / Verified 08/26/23 16:12
Vomiting
hydrocodone AdvReac Nausea / Verified 08/26/23 16:12
Vomiting
hydromorphone [From Dilaudid] AdvReac Nausea / Verified 08/26/23 16:12
Vomiting
levofloxacin AdvReac nausea/vomi Verified 08/26/23 16:12
ting
meperidine [From Demerol] AdvReac Nausea / Verified 08/26/23 16:12
Vomiting
morphine AdvReac nausea/vomi Verified 08/26/23 16:12
ting
oxycodone AdvReac Nausea / Verified 08/26/23 16:12
Vomiting
dust Allergy eyes itchy Uncoded 08/26/23 16:12
�Medication �Instructions �Recorded
ascorbic acid (vitamin C) 500 mg 1,000 mg PO DAILY ##0 12/17/20
tablet (Vitamin C)
cholecalciferol (vitamin D3) 25 50 mcg PO DAILY ##0 12/17/20
mcg (1,000 unit) tablet
labetalol 200 mg tablet 400 mg PO BID ##0 12/17/20
levocetirizine 5 mg tablet (Xyzal) 5 mg PO DAILYPRN PRN allergies 12/17/20
omeprazole 20 mg capsule,delayed 20 mg PO DAILY 12/17/20
release
simvastatin 20 mg tablet 20 mg PO HS 12/17/20
vitamin B complex 1 tab PO DAILY 12/17/20
calcium carbonate 600 mg PO DAILY 12/21/20
amlodipine 5 mg tablet 5 mg PO DAILY ##0 01/11/21
aspirin 81 mg tablet,delayed 81 mg PO HS 08/26/23
release
azithromycin 250 mg tablet 250 mg PO DAILY 08/26/23
hydrochlorothiazide 12.5 mg capsule 12.5 mg PO DAILY 08/26/23
Review of Systems
-
History Source: Patient
Constitutional: Reports No Symptoms
EENT: Reports No Symptoms
Respiratory: Reports Cough
Cardiac: Reports No Symptoms
Abdomen/GI: Reports Nausea and Black Stools
: Reports No Symptoms
Musculoskeletal: Reports Other (left leg pain)
Neurological: Reports Weakness
Endocrine: Reports No Symptoms
Hematologic/Lymphatic: Reports No Symptoms
Vital Signs
Temp Pulse Resp BP Pulse Ox
97.4 F 110 28 91/40 92
08/26/23 16:13 08/27/23 10:30 08/27/23 10:30 08/27/23 10:00 08/27/23 10:30
Physical Exam
Exam
General: Well Developed, Well Nourished and No Apparent Distress
HEENT: Normocephalic
Respiratory: Other (minimal shortness of breath )
Cardiac: Other (tachy)
GI: Soft, Non Tender and Non Distended
Genito-urinary: No Costovertebral Tender
Musculoskeletal: No Clubbing and No Cyanosis
Skin: Warm and Dry
Neuro: Awake, Alert and AO x 3
Psych: Calm
Results
WBC 12.5 10^3/uL (4.8-10.8) H 08/27/23 06:29
Hgb 6.9 g/dL (12.0-16.0) L* D 08/27/23 06:29
Hct 21.0 % (37.0-47.0) L 08/27/23 06:29
MCV 76.6 fL (81.0-99.0) L 08/27/23 06:29
Plt Count 361 10^3/uL (130-400) 08/27/23 06:29
Absolute Neuts (auto) 10.0 10^3/uL (1.4-6.5) H 08/27/23 06:29
Sodium 138 mmol/L (135-145) 08/27/23 06:29
Potassium 4.0 mmol/L (3.5-5.1) 08/27/23 06:
Chloride 106 mmol/L (98-107) 08/27/23 06:29
Carbon Dioxide 17 mmol/L (22-30) L 08/27/23 06:29
BUN 61 mg/dl (7-17) H 08/27/23 06:29
Creatinine 2.0 mg/dL (0.6-1.0) H 08/27/23 06:
Calcium 8.7 mg/dl (8.4-10.2) 08/27/23 06:29
Total Bilirubin 0.9 mg/dl (0.2-1.3) 08/27/23 06:29
AST 61 U/L (14-36) H 08/27/23 06:29
ALT 29 U/L (0-35) 08/27/23 06:29
Alkaline Phosphatase 153 U/L (38-126) H 08/27/23 06:29
Diagnostic Image Results:
08/26/23 CT Chest W/o Iv Contrast
Small right and tiny left pleural effusions.
Mild right lower lobe consolidation which may represent atelectasis or pneumonia. Stable
Moderate left lower lobe atelectasis versus scarring.
Large hiatal hernia. Stable
Prior GI Procedures:
EGD: 6 years ago [facility]
Colonoscopy: 6 years ago [facility]
Assessment / Plan
-
Pt is a 82yo with long standing iron deficiency anemia, large HH, CKD, HTN, hypercholesterolemia, lymphadenopathy, CKD, osteoarthritis, uterine fibroid with follow with Dr. Terrell from Hematology at [place] and last GI follow with [facility]. She
now presents with recent sinus symptoms with antibiotic and steroid treatment. She admits to onset of black stool with steroid use. She phone her pharmacy for side effects and recommend review with PCP. She now presents 08/25 with cough and
congestion with CT on admission with concern for atelectasis vs PNA and large HH. On admission hbg 10 with drop to 6.9 after admission with BUN up to 61.
-anemia with iron decency with recent black stool
-concern for PNA on admission with sepsis- tachycardia/hypotension
-large HH
-recent antibiotics/steroid for sinusitis
-leg pain
other medical problems:
-CKD
-HTN
-hypercholesterolemia
-fibroids
-osteoarthritis
PLAN:
Etiology of anemia with recent black stools related to hiatal hernia with ajit lesion, PUD with recent steroid use vs other
plan for EGD in AM as pt ate breakfast this am
cont PPI with drop in hbg and rise in BUN will change to PPI gtt
trend hbg
ok for clear diet today then NPO in AM
work up per hospitalist for leg pain
cont abx for concern for PNA
will follow
-
-
Thank you for consultation and allowing me to participate in the patient's care. Please call the traffic control operator GI physician during the after hours with any questions or concerns.
[2023-08-27 12:26] LABS: Hematocrit 30.9 % (37.0-47.0)
[2023-08-27 12:37] LABS: Hemoglobin 10.2 g/dL (12.0-16.0)
[2023-08-27] MEDS: PROTONIX 100 IV ×2 (14:05→23:18)
[2023-08-27] MEDS: TRANDATE 200 MG PO (21:30)
[2023-08-27] MEDS: TYLENOL 650 MG PO (21:30)
[2023-08-27] MEDS: ZYRTEC 5 MG PO (21:31)
[2023-08-27] MEDS: NSS IV (23:34)
[2023-08-28] VITALS (11 sets, daily range): BP systolic 18–143; BP diastolic 63–88; PULSE 109–147; O2SAT 95; BMI 34.1
--- NOTE | 2023-08-28 01:46 | PTCARENOTE ---
At start of shift, pt's HR sustained >120s in a-fib, BP 123/75, afebrile. JAMEL Hansen notified, ordered x1 200mg Labetalol, admin at approx 2130 (refer to MAY). Pt HR now reading 100s, still a-fib.
Pt uncooperative at times with care, refusing to get OOB. Orthostatic vital signs ordered - pt refusing to complete. JAMEL Hansen made aware.
Call novoa within reach.
[2023-08-28] MEDS: NSS 1000 IV ×2 (02:24→11:11)
[2023-08-28] MEDS: ZOSYN 50 IV ×3 (05:24→17:07)
[2023-08-28 07:13] LABS: % Basophils 0.2 % (0-2); % Eosinophils 1.8 % (0-6); % Immature Granulocytes 0.6 % (0-0.5); % Lymphocytes 9.6 % (20.5-51.1); % Neutrophils 80.8 % (42.2-75.2); Absolute Eosinophils 0.2 10^3/uL (0-0.7); Absolute Immature Granulocytes 0.1 10^3/uL (0-0.05); Absolute Lymphocytes 0.8 10^3/uL (1.2-3.4); Absolute Monocytes 0.6 10^3/uL (0.1-0.6); Absolute Neutrophils 6.9 10^3/uL (1.4-6.5); Hematocrit 30.1 % (37.0-47.0); Hemoglobin 10.1 g/dL (12.0-16.0); Mean Corp Hgb Conc. 33.6 g/dL (33.0-37.0); Mean Corpuscular Hgb 25.3 pg (27.0-31.0); Mean Corpuscular Volume 75.3 fL (81.0-99.0); Mean Platelet Volume 10.5 fL (7.4-10.4); Nucleated Red Blood Cells % 0 %; Platelet Count 338 10^3/uL (130-400); Red Cell Dist. Width 14.3 % (11.5-14.5); White Blood Cell Count 8.5 10^3/uL (4.8-10.8)
[2023-08-28] MEDS: B COMPLEX w/VITAMIN C PO ×2 (07:35→07:39)
[2023-08-28] MEDS: OSCAL CAL 500 PO ×2 (07:35→07:40)
[2023-08-28] MEDS: VITAMIN D3 (cholecalciferol) PO ×2 (07:36→07:40)
[2023-08-28] MEDS: VITAMIN C PO ×2 (07:36→07:40)
[2023-08-28 07:41] LABS: ALT (SGPT) 45 U/L (0-35); AST (SGOT) 86 U/L (14-36); Albumin 2.6 g/dl (3.5-5.0); Alkaline Phosphatase 231 U/L (38-126); Blood Urea Nitrogen 56 mg/dl (7-17); Calcium 8.9 mg/dl (8.4-10.2); Carbon Dioxide 20 mmol/L (22-30); Chloride 108 mmol/L (98-107); Estimated Creatinine Clearance 24 ml/min; Glucose 104 mg/dl (70-99); Potassium 3.8 mmol/L (3.5-5.1); Sodium 138 mmol/L (135-145); Total Bilirubin 0.9 mg/dl (0.2-1.3); Total Protein 5.1 g/dl (6.3-8.2); eGFR 29.57
--- NOTE | 2023-08-28 08:12 | W.PN.HOSP.TC ---
Addendum entered and electronically signed by Michel Salmeron MD 08/28/23 23:22:
I saw and evaluated the patient. I reviewed the resident�s note and agree with findings and plan as documented in the resident�s note. Patient states she wants to go home but too weak to even sit up. Seen post EGD. called by nursing re rapid a fib
with RVR Full 12 point ROS reviewed and negative except as documented Exam: Vitals reviewed in chart GEN- NAD heart RRR lungs clear abd soft LE right knee NTTP left knee minimal swelling noted no redness or warmth
# Sepsis with GPC bacteremia
- possible contaminant
- repeat blood cx in am
- chest CT- 08/25- Small right and tiny left pleural effusions.
- Mild right lower lobe consolidation
- DC IV fluids
- add vanco to zosyn until blood cx verified
- Follow CBC
- Follow temperature curve
- leukocytosis resolved
# Rapid A-fib with RVR status post Watchman device
- metoprolol IV x1 now and prn
- restart labetalol
- restart aspirin
#Acute on chronic anemia h/o melena s/p steroid use
- Hemoglobin dropped to 6.9 from 10 overnight-lab error.
- Repeat H&H showed normal baseline hemoglobin 10.2
- EGD- 08/27- large hiatal hernia otherwise normal esophagus
- DC PPI gtt
#Hypotension
- resolved
- DC fluids
- Hold hydrochlorothiazide
#left knee pain
- History of knee replacement
- check knee x-ray - no fx
- doubt septic joint
#JETHRO on CKD stage III
- improved cr 1.7
- cr @ 2.0 unknown baseline
- Likely prerenal
- DC IVF
- Hold hydrochlorothiazide
#Chronic peripheral edema
-Bilateral peripheral vascular ultrasound negative for DVT
# Transaminitis-
- repeat in am
- hold atorvastatin
#GERD
restart PPI, calcium carbonate
#Hyperlipidemia
- hold atorvastatin
#HTN
- cont labetolol and hold amlodopine
DVT prophylaxis restart heparin
CODE STATUS: Full code
Dispo PT OT eval, CM c/s- will likely need SNF on DC
Anticipated Discharge: > 48 hours
Time spent coordinating care, review of plan of care with resident, review of records, med rec, consults, notes, labs, rads, d/w nursing � 55 mins
Original Note:
Today's Communication/Plan
-
Continue IV abx
Discharge planning
Assessment / Plan
Assessment / Plan
Acute problems
Sepsis
Right lower lobe pneumonia
Acute on chronic anemia
Hypotension
left knee pain
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
Chronic peripheral edema
A-fib status post Watchman device
chronic iron deficiency anemia
GERD
Hyperlipidemia
#Sepsis
Secondary to right lower lobe pneumonia
Leukocytosis, hypotension, tachycardia, tachypnea on presentation
cxr: 08/26/2023: MODERATE CARDIOMEGALY without evidence for acute pulmonary edema. Moderate volume loss in the right lung with left to right mediastinal shift. Moderate subpleural airspace opacity in the right lower lobe which is probably scarring
or atelectasis. Small right pleural effusion or pleural thickening in the inferior right hemithorax. Moderate to large paraesophageal hiatal hernia.
- Leukocytosis now resolved
- Continue IV fluids
- Continue Zosyn
-Follow CBC
-Follow temperature curve
#Right lower lobe pneumonia
-Continue antibiotics
#Acute on chronic anemia
Hemoglobin dropped to 6.9 from 10 overnight.
Repeat H&H showed normal baseline hemoglobin 10.2
-Likely lab error
-Stop Q4 H&H
#Hypotension
Secondary to sepsis
-Resolved today
-Continue fluids
-hold hydrochlorothiazide for JETHRO
Joint pain
-History of multiple joint replacements
-Knee pain: knee x-ray 08/27/2023: Right total knee replacement with small suprapatellar joint effusion
-Right foot pain
-PT consult
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
Improved, CR 1.7. Last known cr 1.4 in 2020
- Likely prerenal
- Hold hydrochlorothiazide
Elevated transaminases:
Billirubin stable
AST 86, ALT 45, Alk phos: 231
-Hold statin
-AM CBC
#Chronic peripheral edema
-Bilateral peripheral vascular ultrasound negative for DVT
#A-fib status post Watchman device
-Continue labetalol now that blood pressure is stable
-Continue aspirin 81 mg
-Metoprolol tartrate 5mg IV for HR>120
#chronic anemia
Chronic, at baseline
Iron panel: likely component of anemia of chronic disease
Recent history of dark stools
GI consult: EGD today
#GERD
Continue omeprazole, calcium carbonate
#Hyperlipidemia
hold atorvastatin for elevated transaminases
#HTN
Continue labetalol
DVT prophylaxis heparin
CODE STATUS: Full code
Anticipated Discharge: Within 24 hours
Subjective/Interval History
-
Date of Service: August 28, 2023
Messaged by nurse this morning about HR to 120s.
Objective Data
-
Labs:
Laboratory Results
08/28/23
06:59
WBC 8.5
Hgb 10.1 L
Hct 30.1 L
Plt Count 338
Sodium 138
Potassium 3.8
Chloride 108 H
Carbon Dioxide 20 L
BUN 56 H
Creatinine 1.7 H
Glucose 104 H
Calcium 8.9
Total Bilirubin 0.9
AST 86 H
ALT 45 H
Alkaline Phosphatase 231 H
Vital Signs:
Vital Signs
Temp Pulse Resp BP Pulse Ox
97.3 F 105 16 143/76 94
08/28/23 07:30 08/28/23 07:30 08/28/23 07:30 08/28/23 07:30 08/28/23 07:30
I&O
08/27/23 08/28/23 08/29/23
06:59 06:59 06:59
Intake Total 240 / 240
Output Total 350 / 350
Balance -110 / -110
Review of Systems
-
History Source: Patient
Constitutional: Reports Weakness
Respiratory: Denies Trouble Breathing
Cardiac: Denies Chest Pain or Syncope
Abdomen/GI: Denies Abdominal Pain, Nausea, Vomiting, Diarrhea, Constipated, Bloody Stools or Black Stools
Genitourinary: Denies Dysuria or Difficulty Voiding
Neuro: Denies Dizzy or Headache
Physical Exam
-
General: Comfortable
Respiratory: Crackles (RLL) and Non Labored Respirations; Negative Accessory Resp Muscle Use
Cardiac: S1/S2 and Irregular Rhythm; Negative Murmur
GI: Soft, Nontender, Nondistended and Normal Bowel Sounds
Musculoskeletal: No Clubbing, No Cyanosis, Edema, Right Lower Extrem and Edema, Left Lower Extrem
Skin: Warm and Dry; Negative Lesions or Jaundice
Neuro: Awake, Alert and Oriented
Psych: Calm
--- NOTE | 2023-08-28 10:21 | W.PN.UPDATE ---
Update Note
Progress Note Update
EGD with large hiatal hernia (approx 7cm) but no ulcers or erosions seen.
tortuous esophagus
with hgb being stable and anemia of chronic disease and normal EGD would not pursue other investigation at this time.
keep on PPI for now
will sign off call with questions
[2023-08-28] MEDS: DUONEB 3 ML INH (10:30)
[2023-08-28] MEDS: PROTONIX 100 IV ×2 (11:07→21:44)
[2023-08-28] MEDS: TRANDATE 400 MG PO ×2 (11:08→21:45)
[2023-08-28] MEDS: LOPRESSOR 5 MG IV (13:42)
--- NOTE | 2023-08-28 15:57 | CM ---
Reviewed chart, attempted to meet with patient however she was asleep and did not wake. Called patient's daughter to obtain information for assessment. Patient's daughter stated that patient lives alone in a townhouse with around 5 steps to enter.
She has no DME per her daughter. She drives and can get to her appointments and do all of her own shopping.
She has never had VN services nor has she been to a SNF. (Per daughter)
Patient has a prescription plan and uses [facility] in [place] for all of her medications.
Patient's PCP is unlisted.
Patient's daughter stated that patient will want to return home when stable and does not think that she will have any needs.
Reviewed patient's PT and OT and patient is not near baseline level of functioning. Both recommending SNF. Will f/u with patient to obtain referrals for SNF.
Plan: Case management will continue to follow and assist with discharge planning. Patient will need SNF when cleared for discharge.
[2023-08-28] MEDS: VANCOCIN 540 MG IV (18:15)
--- NOTE | 2023-08-28 19:05 | PHA.VAN.IN ---
Assessment
- Assessment
Renal Function: Appears elevated from baseline (12/21/20 BASELINE SCR: 1.4)
Concomitant Antimicrobials: ZOSYN
- Previous Dosing Experience
Previous Regimen: NONE
Plan
- Plan
Initial / Loading Dose: 2GM
Maintenance Regimen: DOSING BY RANDOM LEVELS
Monitoring: RANDOM VANCOMYCIN LEVEL 08/29/23 AM
Pharmacokinetics Vancomycin I
- -
Patient Age: 82
Patient Sex: Female
Vancomycin Day #: 1
Indication: Bacteremia (PNA)
Requesting Provider: GEOFF
Height / Weight:
Height 5 ft 1 in
Actual Weight 81.902 kg
- Vital Signs / Lab Results
Temp Pulse Resp BP Pulse Ox
97.7 F 127 16 120/88 94
08/28/23 15:03 08/28/23 15:03 08/28/23 15:03 08/28/23 15:03 08/28/23 15:03
Lab Results - Hematology
08/26/23 08/27/23 08/28/23
17:43 06:29 06:59
WBC 13.3 H 12.5 H 8.5
Lab Results - Chemistry
08/26/23 08/27/23 08/28/23
17:43 06:29 06:59
BUN 56 H 61 H 56 H
Creatinine 2.0 H 2.0 H 1.7 H
Estimated Creat Clear
Albumin Cancelled 2.7 L 2.6 L
08/26/23 08/26/23
17:43 21:15
Lactic Acid 1.5 Cancelled
Lab Results - Urine
08/26/23
16:51
Urine Nitrite (Reflex) Negative
Leukocyte Esterase Rfl Negative
Microbiology Results
08/26/23 17:43 Blood Culture - Preliminary
Blood/Venous No Growth in 48 hours- Final report to follow
08/26/23 20:21 Blood Culture - Preliminary
Blood/Venous Positive culture in progress
Gram Stain - Final
08/26/23 19:06 Influenza Types A & B (CORETTA) - Final
Nasal Swab Negative for Influenza A & B, NAAT
Negative results must be combined with clinical observations
and patient history.
Nucleic Acid Amplification test (NAAT)performed on the
[employer] platform.
[2023-08-28] MEDS: LIPITOR 10 MG PO (21:45)
--- NOTE | 2023-08-28 21:57 | VATNOTE ---
unsuccessful attempt to restart 2nd IV line; pt very upset with all the needle sticks. pt wants all her meds switched to PO. Explained pt that she really needs a midline but pt. does not want. WILLY Olea informed.
[2023-08-29] MEDS: ZOSYN 50 IV ×2 (00:46→07:47)
[2023-08-29 03:00] VITALS: BP 110/74
[2023-08-29 06:00] VITALS: BMI 35.2
[2023-08-29 07:00] VITALS: BP 130/84
[2023-08-29 07:04] LABS: % Basophils 0.3 % (0-2); % Eosinophils 3.9 % (0-6); % Immature Granulocytes 0.5 % (0-0.5); % Lymphocytes 12.9 % (20.5-51.1); % Monocytes 7.1 % (1.7-9.3); % Neutrophils 75.3 % (42.2-75.2); Absolute Eosinophils 0.3 10^3/uL (0-0.7); Absolute Monocytes 0.5 10^3/uL (0.1-0.6); Absolute Neutrophils 5.5 10^3/uL (1.4-6.5); Hematocrit 26.7 % (37.0-47.0); Hemoglobin 8.6 g/dL (12.0-16.0); Mean Corp Hgb Conc. 32.2 g/dL (33.0-37.0); Mean Corpuscular Hgb 24.9 pg (27.0-31.0); Mean Corpuscular Volume 77.2 fL (81.0-99.0); Mean Platelet Volume 10.1 fL (7.4-10.4); Nucleated Red Blood Cells % 0 %; Platelet Count 360 10^3/uL (130-400); Red Blood Cell Count 3.46 10^6/uL (4.20-5.40); Red Cell Dist. Width 14.4 % (11.5-14.5); White Blood Cell Count 7.4 10^3/uL (4.8-10.8)
[2023-08-29 07:24] LABS: Vancomycin Random 20.3 ug/ml
[2023-08-29 07:40] LABS: ALT (SGPT) 52 U/L (0-35); AST (SGOT) 74 U/L (14-36); Albumin 2.5 g/dl (3.5-5.0); Alkaline Phosphatase 240 U/L (38-126); Blood Urea Nitrogen 45 mg/dl (7-17); Calcium 8.8 mg/dl (8.4-10.2); Carbon Dioxide 19 mmol/L (22-30); Chloride 111 mmol/L (98-107); Estimated Creatinine Clearance 25 ml/min; Glucose 101 mg/dl (70-99); Potassium 3.6 mmol/L (3.5-5.1); Sodium 139 mmol/L (135-145); Total Bilirubin 0.6 mg/dl (0.2-1.3); eGFR 29.57
--- NOTE | 2023-08-29 08:53 | PHA.VAN.FU ---
Vancomycin Assessment / Plan
- Assessment
Renal Function: Stable
WBC's are: WNL
In the past 24 hrs, patient has been: Afebrile
Concomitant Antimicrobials: piperacillin/tazobactam
- Assessment - Therapeutic Drug Monitoring
Random Level: 20.3 - drawn ~12.5H after 2g loading dose
- Dosing Plan
Dosing by Level: Hold off on dosing today
- Monitoring Plan
Random Level: 08/29 06
- Follow Up
Pharmacy will continue to follow.
Vancomycin Follow UP
- -
Patient Age: 82
Patient Sex: Female
Vancomycin Day #: 2
Indication: Bacteremia
Requesting Provider: Dr. Griffin (resident)
Pertinent Antimicrobial Allergies:
cefuroxime - nausea/vomiting
levofloxacin - nausea/vomiting
Height / Weight:
Height 5 ft 1 in
Actual Weight 84.425 kg
Pertinent Past Medical History: CKD
- Vital Signs / Lab Results
Temp Pulse Resp BP Pulse Ox
98.6 F 100 17 130/84 97
08/29/23 07:00 08/29/23 07:00 08/29/23 07:00 08/29/23 07:00 08/29/23 07:00
Lab Results - Hematology
08/26/23 08/27/23 08/28/23
17:43 06:29 06:59
WBC 13.3 H 12.5 H 8.5
08/29/23
06:51
WBC 7.4
Lab Results - Chemistry
08/26/23 08/27/23 08/28/23
17:43 06:29 06:59
BUN 56 H 61 H 56 H
Creatinine 2.0 H 2.0 H 1.7 H
Estimated Creat Clear
Albumin Cancelled 2.7 L 2.6 L
06/05/24
06:51
BUN 45 H
Creatinine 1.7 H
Estimated Creat Clear 25
Albumin 2.5 L
08/26/23 08/26/23
17:43 21:15
Lactic Acid 1.5 Cancelled
Microbiology Results
08/26/23 17:43 Blood Culture - Preliminary
Blood/Venous No Growth in 48 hours- Final report to follow
08/26/23 20:21 Blood Culture - Preliminary
Blood/Venous Positive culture in progress
Gram Stain - Final
Therapeutic Drug Monitoring
Random Vancomycin 20.3 ug/ml 08/29/23 06:51
[2023-08-29] MEDS: B COMPLEX w/VITAMIN C 1 CAPLET PO (08:57)
[2023-08-29] MEDS: HEPARIN 5000 UNITS SC ×2 (08:57→20:48)
[2023-08-29] MEDS: TRANDATE 400 MG PO ×2 (08:58→20:48)
[2023-08-29] MEDS: OSCAL CAL 500 500 MG PO (08:58)
[2023-08-29] MEDS: VITAMIN C 1000 MG PO (08:59)
[2023-08-29] MEDS: VITAMIN D3 (cholecalciferol) 50 MCG PO (08:59)
--- NOTE | 2023-08-29 09:33 | CON.ID ---
Addendum entered and electronically signed by Leesa Dent MD 08/29/23 15:27:
blood culture 1 of 2 sets of CONS
most likely contaminant
no further treatment or workup recommended at this time
stopped vancomycin
stable for dc from ID perspective; ID service will no longer actively follow this patient please recall for further questions
Follow up with PCP.
Original Note:
Consultation
-
Date/Time Consultation Requested: 08/28/23 17:57
Date/Time Consultation Performed: 08/29/23 9:33
Requesting Provider: Dr Griffin
Performing Provider: Dr Dent
Reason for Consultation: RLL Pneumonia
Chief Complaint / Past History
Chief Complaint
cough and nasal congestion for the past several days
History of Present Illness
Ms Ramos is an 82 year old female with history of CKD3, Class II obesity, chronic lymphedema who presented here 08/25 for productive cough with greenish, nasal congestion x several days. Had telehealth visit and started azithromycin which she took
x4 of 5 days. Of note assisting daughter who recently had knee replacement. Complaining of pain in the legs L > R; reports no trauma and pain is chronic. Developed weakness which caused her to present to the ER. No: fever, chest pain,
palpitations, headache, sore throat, abdominal pain, nausea, vomiting, diarrhea, dysuria.
Since arrival here she has been afebrile, bp initially mildly hypotensive now stable, minimal tachycardia in afib, wbc on arrival 13.3 normalized HD 3 and remains 7.4 today, hgb on arrivla 10 now 8.6, plt 360, L shift noted on arrival and nearly
resolved, Cr 2.0 on arrival, baseline ~1.4, now 1.7, t bili 0.6, ast 74, alt 52, alk phos 240, crp >270, UA no pyuria, covid ag neg, 08/25 CT chest w/o IV contrast: Mild right lower lobe consolidation which may represent atelectasis or pneumonia.
Stable Moderate left lower lobe atelectasis versus scarring. CXR 08/25: Moderate subpleural airspace opacity in the right lower lobe which is probably scarring or atelectasis. sputum culture ordered but patient has not produced, 08/25 blood culture 1
of 2 sets with GPCs in clusters in pediatric bottle. Reports that since arrival sputum production has resolved, fever has resolved and her main complaint at this time is weakness.
Past History
Additional Past Medical History:
A-fib,/watchman's procedure
Iron deficiency anemia
HTN
HLD
peripheral lymphedema
CKD 3B
osteoarthritis
uterine fibroids with removal
Additional Past Surgical History:
Additional Past Surgical History:
Tonsillectomy adenoidectomy 1946
Uterine fibroids removed
Fracture ankle right repair
Hammertoe repair x 3
Arthroscopy right and left knee
Right knee replacement 2004
Left knee replacement 2011
Arthrodesis of the left leg 2014
Left shoulder replacement 2017, 2019
Umbilical hernia repair and tummy tuck
Bladder lift
Cataract extraction left eye
Right total hip replacement December 2020
Right shoulder replacement 2022
Allergy History:
cefuroxime Allergy (Verified 08/27/23 20:44)
nausea/vomiting
codeine Allergy (Verified 08/27/23 20:44)
Nausea / Vomiting
fentanyl Allergy (Verified 08/27/23 20:44)
Nausea / Vomiting
house dust Allergy (Verified 08/27/23 20:44)
eyes itchy
hydrocodone Allergy (Verified 08/27/23 20:44)
Nausea / Vomiting
hydromorphone [From Dilaudid] Allergy (Verified 08/27/23 20:44)
Nausea / Vomiting
levofloxacin Allergy (Verified 08/27/23 20:44)
nausea/vomiting
meperidine [From Demerol] Allergy (Verified 08/27/23 20:44)
Nausea / Vomiting
morphine Allergy (Verified 08/27/23 20:44)
nausea/vomiting
oxycodone Allergy (Verified 08/27/23 20:44)
Nausea / Vomiting
Medications Reviewed: Yes
Social History
Tobacco: Non-Smoker
Alcohol: None
Drug: None
Family History
Family History: Not Pertinent
Review of Systems
Review of Systems
General: Negative Fever or Chills
All systems: All other systems were reviewed and were negative
Vital Signs
Temp Pulse Resp BP Pulse Ox
98.6 F 100 17 130/84 97
08/29/23 07:00 08/29/23 07:00 08/29/23 07:00 08/29/23 07:00 08/29/23 07:00
Physical Exam
Physical Exam
Constitutional: No Acute Distress, Chronically Ill and Obese
Cardiovascular: Regular Rate and S1/S2; Negative Murmur or Rub
Pulmonary: Clear and Symmetric; Negative Wheezes, Rales or Rhonchi
Gastrointestinal: Soft, Non Tender, Non Distended and Normal Bowel Sounds
Musculoskeletal: Other (bilateral knees with well healed surgical sites, minimal swelling. no erythema, warmth or tenderness. Edema correlates with uncontrolled lymphedema.)
Skin: Warm and Dry; Negative Rash or Jaundice
Neurological: Awake
Psychological: Calm
Lab / Diagnostic Study Results
08/29/23 06:51
08/29/23 06:51
Abs Immat Gran (auto) 0.0 10^3/uL (0-0.05) 08/29/23 06:51
Absolute Neuts (auto) 5.5 10^3/uL (1.4-6.5) 08/29/23 06:51
Absolute Lymphs (auto) 1.0 10^3/uL (1.2-3.4) L 08/29/23 06:51
Absolute Monos (auto) 0.5 10^3/uL (0.1-0.6) 08/29/23 06:51
Absolute Basos (auto) 0.0 10^3/uL (0-0.2) 08/29/23 06:51
Immature Gran % 0.5 % (0-0.5) 08/29/23 06:51
Neutrophils % 75.3 % (42.2-75.2) H 08/29/23 06:51
Lymphocytes % 12.9 % (20.5-51.1) L 08/29/23 06:51
Monocytes % 7.1 % (1.7-9.3) 08/29/23 06:51
Eosinophils % 3.9 % (0-6) 08/29/23 06:51
Basophils % 0.3 % (0-2) 08/29/23 06:51
ESR 14 mm/hour (0-20) 08/27/23 06:29
Lactic Acid Cancelled 08/26/23 21:15
C-Reactive Protein > 270.00 mg/L (0.0-10.00) H 08/27/23 06:29
Procalcitonin 5.50 ng/ml (0.0-0.25) H* 08/26/23 20:21
Microbiology Results
Micro:
08/29/23 06:51 Blood Culture - Pending
Blood/Venous
08/26/23 17:43 Blood Culture - Preliminary
Blood/Venous No Growth in 48 hours- Final report to follow
08/26/23 20:21 Blood Culture - Preliminary
Blood/Venous Positive culture in progress
Gram Stain - Final
08/26/23 19:06 Influenza Types A & B (CORETTA) - Final
Nasal Swab Negative for Influenza A & B, NAAT
Negative results must be combined with clinical observations
and patient history.
Nucleic Acid Amplification test (NAAT)performed on the
[employer] platform.
Assessment / Plan
Bacteremia - GPCs in clusters
Extensive Surgical history
- single set in pediatric bottle positive at <48 hours
- send second set now. Please send blood cultures in sets of two - ideally 30 min apart or from two separate sticks. Some providers will do cultures QAM x2; when then is done two sets still required albeit 24 hours apart.
1) a single set is not sufficiently sensitive to rule out bacteremia. 2) having two draws helps distinguish contamination and decrease length of stay.
- if CONS then could well be a contaminant. If in multiple cultures note acute on chronic knee pain and extensive surgical history
- if S aures will need to treat as a true pathogen.
- continue vancomycin at this time
- follow clinically, further recommending pending cultures, ID of the isolate
Resolved Pneumonia
Reports prior ADR to levofloxacin and cefuroxime - not clinically relevant
Leukocytosis - resolve
- CT chest most consistent with atelectasis, alternatively treated pneumonia
- procalcitonin not reliable with significant CKD/ESRD; ESR/CRP can also accumulate and would not base clinical decisions on these markers in this setting
- hasnt produced a sputum
- influenza pcr and covid ag neg
- s/p 5 days of azithromycin; now on day 4 zosyn; has completed a sufficient course - stopped
--- NOTE | 2023-08-29 09:36 | W.PN.HOSP.TC ---
Addendum entered and electronically signed by Michel Salmeron MD 08/29/23 22:55:
I saw and evaluated the patient. I reviewed the resident�s note and agree with findings and plan as documented in the resident�s note. patient with numerous complaints and questions re being weak. Full 12 point ROS reviewed and negative except as
documented Exam: Vitals reviewed in chart GEN- NAD heart RRR lungs clear abd soft LE right knee NTTP left knee minimal swelling noted no redness or warmth
# Sepsis with GPC bacteremia
- possible contaminant
- repeat blood cx 08/28 - P
- chest CT- 08/25- Small right and tiny left pleural effusions.
- Mild right lower lobe consolidation
- DC IV fluids
- cont vanco DC zosyn until blood cx NGTD
- Follow CBC
- Follow temperature curve
- leukocytosis resolved
- ID input greatly appreciated
# Rapid A-fib with RVR status post Watchman device
- metoprolol IV x1 now and prn
- cont labetalol
- restarted aspirin
#Acute on chronic anemia h/o melena s/p steroid use
- initially hb dropped to 6.9 from 10 overnight-lab error.
- Repeat H&H showed normal baseline
- EGD- 08/27- large hiatal hernia otherwise normal esophagus
- DC PPI gtt
- cont home PPI
#Hypotension
- resolved
- DC fluids
- Hold hydrochlorothiazide
#left knee pain
- History of knee replacement
- check knee x-ray - no fx
- doubt septic joint
#JETHRO on CKD stage III
- resolved
- cr 1.7
- Likely prerenal
- DC IVF
- Hold hydrochlorothiazide
#Chronic peripheral edema
-Bilateral peripheral vascular ultrasound negative for DVT
# Transaminitis-
- likely chronic
- repeat in am
- hold atorvastatin
#GERD
-restart PPI, calcium carbonate
#Hyperlipidemia
- hold atorvastatin
#HTN
- cont labetolol and cont to hold amlodipine
DVT prophylaxis- heparin
CODE STATUS: Full code
Dispo PT OT eval, CM c/s- will need SNF on DC after blood cx neg x 48 hours - patient resistant
Time spent coordinating care, review of plan of care with resident, review of records, med rec, consults, notes, labs, rads, d/w nursing and CM � 57 mins
Original Note:
Today's Communication/Plan
-
Pending Repeat blood cx
Discharge planning
Assessment / Plan
Assessment / Plan
Acute problems
Sepsis
Right lower lobe pneumonia
Acute on chronic anemia
Hypotension
left knee pain
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
Chronic peripheral edema
A-fib status post Watchman device
chronic iron deficiency anemia
GERD
Hyperlipidemia
#Sepsis
Secondary to right lower lobe pneumonia
Leukocytosis, hypotension, tachycardia, tachypnea on presentation
cxr: 08/26/2023: MODERATE CARDIOMEGALY without evidence for acute pulmonary edema. Moderate volume loss in the right lung with left to right mediastinal shift. Moderate subpleural airspace opacity in the right lower lobe which is probably scarring
or atelectasis. Small right pleural effusion or pleural thickening in the inferior right hemithorax. Moderate to large paraesophageal hiatal hernia.
- Leukocytosis now resolved
-Positive blood Cx - gram positive cocci in clusters,
-Zosyn and Ceftriaxone course complete
-Continue Vancomycin pending repeat blood Cx
-Follow CBC
-Follow temperature curve
#Acute on chronic anemia
Hemoglobin dropped to 6.9 from 10 overnight.
Repeat H&H showed normal baseline hemoglobin 10.2
-Likely lab error
-Stop Q4 H&H
-Monitor CBC
#Hypotension
Secondary to sepsis
-Resolved, IVF discontinued
-hold hydrochlorothiazide for JETHRO
Joint pain
-History of multiple joint replacements
-Knee pain: knee x-ray 08/27/2023: Right total knee replacement with small suprapatellar joint effusion
-Unlikely septic joint
-Right foot pain
-PT evaluation, recommends SNF rehab
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
Improved, CR 1.7. Unknown baseline. Last known cr 1.4 in 2020
- Likely prerenal
- Hold hydrochlorothiazide
Elevated transaminases:
Billirubin stable
AST 86, ALT 45, Alk phos: 231
-Hold statin
-AM CBC
#Chronic peripheral edema
-Bilateral peripheral vascular ultrasound negative for DVT
#A-fib + RVR status post Watchman device
-Continue labetalol
-Continue aspirin 81 mg
-Continue Metoprolol tartrate 5mg IV for HR>120
#chronic anemia
Chronic, at baseline
Iron panel: likely component of anemia of chronic disease
Recent history of dark stools
GI consult: Egd 08/27 showed tortuous esophagus, large haital hernia, no ulcers
#GERD
Continue home equivalent ppi, calcium carbonate
#Hyperlipidemia
hold atorvastatin for elevated transaminases
#HTN
Continue labetalol
DVT prophylaxis heparin
CODE STATUS: Full code
Anticipated Discharge: Within 24 hours
Subjective/Interval History
-
Date of Service: August 29, 2023
Objective Data
-
Labs:
Laboratory Results
08/29/23
06:51
WBC 7.4
Hgb 8.6 L
Hct 26.7 L
Plt Count 360
Sodium 139
Potassium 3.6
Chloride 111 H
Carbon Dioxide 19 L
BUN 45 H
Creatinine 1.7 H
Glucose 101 H
Calcium 8.8
Total Bilirubin 0.6
AST 74 H
ALT 52 H
Alkaline Phosphatase 240 H
Vital Signs:
Vital Signs
Temp Pulse Resp BP Pulse Ox
98.6 F 100 17 130/84 97
08/29/23 07:00 08/29/23 07:00 08/29/23 07:00 08/29/23 07:00 08/29/23 07:00
I&O
08/28/23 08/29/23 08/30/23
06:59 06:59 06:59
Intake Total 240 / 240 890 / 890
Output Total 350 / 350 300 / 300
Balance -110 / -110 590 / 590
Review of Systems
-
History Source: Patient
Constitutional: Reports Fatigue and Weakness
Respiratory: Reports No Symptoms
Cardiac: Reports No Symptoms; Denies Chest Pain, Palpitations or Syncope
Abdomen/GI: Reports No Symptoms
Genitourinary: Reports No Symptoms; Denies Dysuria or Difficulty Voiding
Musculoskeletal: Reports Joint Pain, Joint Swelling and Edema
Neuro: Denies Dizzy or Headache
Physical Exam
-
General: Other (Appears uncomfortable)
HEENT: Normocephalic, Atraumatic and Moist Mucous Membranes
Respiratory: Rales (minor rales RLL)
Cardiac: Regular Rhythm and S1/S2; Negative Murmur or Calf Tenderness
GI: Soft, Nontender and Nondistended
Musculoskeletal: No Clubbing, No Cyanosis, Edema, Right Lower Extrem and Edema, Left Lower Extrem
Skin: Warm and Dry; Negative Rash or Ulcers
Neuro: Awake, Alert and Oriented
Psych: Calm
[2023-08-29 11:00] VITALS: BP 118/79
--- NOTE | 2023-08-29 11:11 | CM ---
Addendum entered by Misti Langley 08/29/23 12:25:
Spoke with pt - offered choice for SNF - Prefers [facility] and [facility]
Referral sent in [facility]
Will need auth
Plan - SNF when medically ready
Original Note:
Case management following for d/c planning
PT/OT recommending SNF
Attempted to speak with pt regarding choices - pt covered head and did not wish to speak with CM
Spoke with pts daughter Lorena - discussed SNF as recommendation for pt at d/c - daughter reports she is isn't familiar with area and does not have Internet access. Deferred choice to her mother
CM will reach out to pt again
[2023-08-29] MEDS: PROTONIX 20 MG PO (14:04)
[2023-08-29 15:00] VITALS: BP 131/83
[2023-08-29 19:10] VITALS: BP 133/80
[2023-08-29] MEDS: ASPIR LOW (ENTERIC COATED) 81 MG PO (22:27)
[2023-08-29] MEDS: LIPITOR 10 MG PO (22:27)
[2023-08-29 23:05] VITALS: BP 134/76
[2023-08-30] VITALS (7 sets, daily range): BP systolic 124–165; BP diastolic 70–98; PULSE 102; O2SAT 97; BMI 34.9
[2023-08-30 07:22] LABS: Hematocrit 27.2 % (37.0-47.0); Hemoglobin 8.8 g/dL (12.0-16.0); Mean Corp Hgb Conc. 32.4 g/dL (33.0-37.0); Mean Corpuscular Hgb 24.9 pg (27.0-31.0); Mean Corpuscular Volume 77.1 fL (81.0-99.0); Platelet Count 400 10^3/uL (130-400); Red Blood Cell Count 3.53 10^6/uL (4.20-5.40); Red Cell Dist. Width 14.6 % (11.5-14.5)
--- NOTE | 2023-08-30 07:37 | W.PN.HOSP.TC ---
Addendum entered and electronically signed by Michel Salmeron MD 08/30/23 22:37:
I saw and evaluated the patient. I reviewed the resident�s note and agree with findings and plan as documented in the resident�s note. patient with numerous complaints. 'i wanna go to [facility]' 'whats my diagnosis for acute rehab' Full 12 point ROS
reviewed and negative except as documented Exam: Vitals reviewed in chart GEN- NAD heart RRR lungs clear abd soft LE right knee NTTP left knee minimal swelling noted no redness or warmth
# Sepsis secondary to PNA
- GPC bacteremia/contaminant
- repeat blood cx 08/28 - NGTD x 24 hours
- chest CT- 08/25- Small right and tiny left pleural effusions.
- Mild right lower lobe consolidation
- DC IV fluids
- DC vanco DC zosyn
- Follow CBC
- Follow temperature curve
- leukocytosis resolved
- ID input greatly appreciated
# Rapid A-fib with RVR status post Watchman device
- resolved
- metoprolol IV x1 now and prn
- cont labetalol
- restarted aspirin
#Acute on chronic anemia h/o melena s/p steroid use
- initially hb dropped to 6.9 from 10 overnight-lab error.
- Repeat H&H showed normal baseline
- EGD- 08/27- large hiatal hernia otherwise normal esophagus
- DC PPI gtt
- cont home PPI
#Hypotension
- resolved
- DC fluids
- Hold hydrochlorothiazide
#left knee pain
- History of knee replacement
- check knee x-ray - no fx
- doubt septic joint
#JETHRO on CKD stage III
- resolved
- cr 1.5
- Likely prerenal
- DC IVF
- Hold hydrochlorothiazide
#Chronic peripheral edema
-Bilateral peripheral vascular ultrasound negative for DVT
# Transaminitis-
- likely chronic
- repeat in am
- hold atorvastatin
#GERD
-restart PPI, calcium carbonate
#Hyperlipidemia
- hold atorvastatin
#HTN
- cont labetalol and cont to hold amlodipine
DVT prophylaxis- heparin
CODE STATUS: Full code
Dispo PT OT eval, CM c/s- will need SNF on DC after blood cx neg x 48 hours - patient resistant
Time spent coordinating care, review of plan of care with resident, review of records, med rec, consults, notes, labs, rads, DC planning, d/w nursing and CM � 54 mins
Original Note:
Today's Communication/Plan
-
Discharge planning
Assessment / Plan
Assessment / Plan
Acute problems
Sepsis
Right lower lobe pneumonia
Acute on chronic anemia
Hypotension
left knee pain
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
Chronic peripheral edema
A-fib status post Watchman device
chronic iron deficiency anemia
GERD
Hyperlipidemia
#Sepsis with gram-positive cocci bacteremia
gram-positive cocci bacteremia likely contaminant
Right lower lobe pneumonia
Leukocytosis, hypotension, tachycardia, tachypnea on presentation
cxr: 08/26/2023: MODERATE CARDIOMEGALY without evidence for acute pulmonary edema. Moderate volume loss in the right lung with left to right mediastinal shift. Moderate subpleural airspace opacity in the right lower lobe which is probably scarring
or atelectasis. Small right pleural effusion or pleural thickening in the inferior right hemithorax. Moderate to large paraesophageal hiatal hernia.
- Leukocytosis now resolved
-Positive blood cx 08/25 - coagulase negative staph, possible contaminant. Repeat blood Cx 08/28 no growth to date
-Zosyn and Ceftriaxone course complete
-Vancomycin discontinued
#Acute on chronic anemia
Hemoglobin dropped to 6.9 from 10 overnight.
Repeat H&H showed normal baseline hemoglobin 10.2
-Likely lab error
-Stop Q4 H&H
-Monitor CBC
#Hypotension
Secondary to sepsis
-Resolved, IVF discontinued
-hold hydrochlorothiazide for JETHRO
Joint pain
-History of multiple joint replacements
-Knee pain: knee x-ray 08/27/2023: Right total knee replacement with small suprapatellar joint effusion
-Unlikely septic joint
-Right foot pain
-PT evaluation, recommends SNF rehab
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
Improved, CR 1.5. Unknown baseline. Last known cr 1.4 in 2020
- Likely prerenal
- Hold hydrochlorothiazide
Elevated transaminases:
Billirubin stable
AST 86, ALT 45, Alk phos: 231
-Hold statin
-AM CBC
#Chronic peripheral edema
-Bilateral peripheral vascular ultrasound negative for DVT
#A-fib + RVR status post Watchman device
-Continue labetalol
-Continue aspirin 81 mg
-Continue Metoprolol tartrate 5mg IV for HR>120
#chronic anemia
Chronic, at baseline
Iron panel: likely component of anemia of chronic disease
Recent history of dark stools
GI consult: Egd 08/27 showed tortuous esophagus, large haital hernia, no ulcers
#GERD
Continue home equivalent ppi, calcium carbonate
#Hyperlipidemia
hold atorvastatin for elevated transaminases
#HTN
Continue labetalol
DVT prophylaxis heparin
CODE STATUS: Full code
Dispo: Discharge to [facility]
Anticipated Discharge: Within 24 hours
Subjective/Interval History
-
Date of Service: August 30, 2023
Pt appears significantly improved
Objective Data
-
Labs:
Laboratory Results
08/30/23
06:45
WBC Pending
Hgb Pending
Hct Pending
Plt Count Pending
Sodium Pending
Potassium Pending
Chloride Pending
Carbon Dioxide Pending
BUN Pending
Creatinine Pending
Glucose Pending
Calcium Pending
Vital Signs:
Vital Signs
Temp Pulse Resp BP Pulse Ox
97.5 F 90 16 154/82 96
08/30/23 03:05 08/30/23 03:05 08/30/23 03:05 08/30/23 03:05 08/30/23 03:05
I&O
08/29/23 08/30/23 08/31/23
06:59 06:59 06:59
Intake Total 890 / 890 630 / 630
Output Total 300 / 300
Balance 590 / 590 630 / 630
Review of Systems
-
History Source: Patient
Constitutional: Reports Fatigue and Weakness (generalized)
Respiratory: Reports No Symptoms; Denies Trouble Breathing
Cardiac: Reports No Symptoms; Denies Chest Pain, Palpitations or Syncope
Abdomen/GI: Reports No Symptoms; Denies Abdominal Pain, Diarrhea or Constipated
Genitourinary: Reports No Symptoms and Difficulty Voiding
Musculoskeletal: Reports Edema
Neuro: Reports No Symptoms; Denies Dizzy or Headache
Physical Exam
-
General: No Apparent Distress and Comfortable; Negative Respiratory Distress
HEENT: Normocephalic, Atraumatic, Moist Mucous Membranes and Anicteric
Respiratory: Clear to Auscultation; Negative Wheezes, Rales, Rhonchi or Crackles
Cardiac: Regular Rhythm and S1/S2; Negative Murmur or Calf Tenderness
GI: Soft, Nontender, Nondistended and Normal Bowel Sounds
Musculoskeletal: No Clubbing, No Cyanosis, Edema, Right Lower Extrem and Edema, Left Lower Extrem
Skin: Warm and Dry; Negative Rash or Ulcers
Neuro: Awake, Alert and Oriented
Psych: Calm
[2023-08-30 07:38] LABS: Vancomycin Random 11.6 ug/ml
[2023-08-30 07:40] LABS: Blood Urea Nitrogen 37 mg/dl (7-17); Calcium 9.5 mg/dl (8.4-10.2); Carbon Dioxide 20 mmol/L (22-30); Chloride 111 mmol/L (98-107); Estimated Creatinine Clearance 28 ml/min; Glucose 102 mg/dl (70-99); Potassium 3.6 mmol/L (3.5-5.1); Sodium 141 mmol/L (135-145); eGFR 34.36
[2023-08-30] MEDS: HEPARIN 5000 UNITS SC ×2 (07:42→20:21)
[2023-08-30] MEDS: TRANDATE 400 MG PO ×2 (07:43→20:20)
[2023-08-30] MEDS: VITAMIN D3 (cholecalciferol) 50 MCG PO (07:43)
[2023-08-30] MEDS: B COMPLEX w/VITAMIN C 1 CAPLET PO (07:44)
[2023-08-30] MEDS: OSCAL CAL 500 500 MG PO (07:45)
[2023-08-30] MEDS: VITAMIN C 1000 MG PO (07:45)
[2023-08-30] MEDS: PROTONIX 20 MG PO (07:45)
[2023-08-30] MEDS: TYLENOL 650 MG PO (12:19)
--- NOTE | 2023-08-30 13:49 | CM ---
Addendum entered by KARLY Welsh 08/30/23 16:27:
Received notification from resident that patient does not want to transfer to [place]. Spoke with patient who stated that she couldn't talk at the moment and requested CM see her later. She was advised that CM will see her in the am. She was
agreeable.
Original Note:
Received call from Randa in admissions at [facility] who stated that she will have a bed for patient tomorrow. Attending updated.
Plan: Case management will continue to follow and assist with discharge planning. Transfer to [place] upon medical clearance.
[2023-08-30] MEDS: ASPIR LOW (ENTERIC COATED) 81 MG PO (22:20)
[2023-08-30] MEDS: LIPITOR 10 MG PO (22:20)
[2023-08-31 06:00] VITALS: BMI 35.1
[2023-08-31 07:00] LABS: Mean Corpuscular Hgb 24.3 pg (27.0-31.0); Mean Corpuscular Volume 78.2 fL (81.0-99.0); Platelet Count 504 10^3/uL (130-400); Red Blood Cell Count 3.71 10^6/uL (4.20-5.40); Red Cell Dist. Width 14.6 % (11.5-14.5); White Blood Cell Count 6.6 10^3/uL (4.8-10.8)
[2023-08-31 07:31] VITALS: BP 151/95
[2023-08-31 07:36] LABS: Blood Urea Nitrogen 35 mg/dl (7-17); Calcium 10.4 mg/dl (8.4-10.2); Carbon Dioxide 20 mmol/L (22-30); Chloride 111 mmol/L (98-107); Estimated Creatinine Clearance 32 ml/min; Glucose 100 mg/dl (70-99); Potassium 3.9 mmol/L (3.5-5.1); Sodium 140 mmol/L (135-145)
[2023-08-31] MEDS: HEPARIN 5000 UNITS SC ×2 (08:07→20:21)
[2023-08-31] MEDS: PROTONIX 20 MG PO (08:07)
[2023-08-31] MEDS: OSCAL CAL 500 500 MG PO (08:07)
[2023-08-31] MEDS: VITAMIN C 1000 MG PO (08:07)
[2023-08-31] MEDS: TRANDATE 400 MG PO ×2 (08:07→20:22)
[2023-08-31] MEDS: VITAMIN D3 (cholecalciferol) 50 MCG PO (08:07)
[2023-08-31] MEDS: B COMPLEX w/VITAMIN C 1 CAPLET PO (08:07)
--- NOTE | 2023-08-31 09:58 | W.PN.HOSP.TC ---
Addendum entered and electronically signed by Michel Salmeron MD 08/31/23 21:54:
I saw and evaluated the patient. I reviewed the resident�s note and agree with findings and plan as documented in the resident�s note. patient with numerous complaints and asking unrelated questions. is avoiding CM and making a decision re rehab.
Full 12 point ROS reviewed and negative except as documented Exam: Vitals reviewed in chart GEN- NAD heart RRR lungs clear abd soft LE right knee NTTP
# Sepsis secondary to PNA
- GPC bacteremia/contaminant
- repeat blood cx 08/28 - NGTD
- chest CT- 08/25- Small right and tiny left pleural effusions.
- Mild right lower lobe consolidation
- completed course of abx
- DC IV fluids
- DC vanco DC zosyn
- Follow CBC
- Follow temperature curve
- leukocytosis resolved
- ID input greatly appreciated
# Rapid A-fib with RVR status post Watchman device
- monitor on tele
- resolved
- cont labetalol
- cont aspirin
#Acute on chronic anemia h/o melena s/p steroid use
- initially hb dropped to 6.9 from 10 overnight-lab error.
- Repeat H&H showed normal baseline
- EGD- 08/27- large hiatal hernia otherwise normal esophagus
- DC PPI gtt
- cont home PPI
- hb stable
#Hypotension
- resolved
- DC fluids
- Hold hydrochlorothiazide
- restart amlodipine
#left knee pain
- History of knee replacement
- check knee x-ray - no fx
- PT OT
#JETHRO on CKD stage III
- resolved
- cr 1.3
- Likely prerenal
- DC IVF
- Hold hydrochlorothiazide
#Chronic peripheral edema
-Bilateral peripheral vascular ultrasound negative for DVT
# Transaminitis-
- likely chronic
- hold atorvastatin
#GERD
-restart PPI, calcium carbonate
#Hyperlipidemia
- hold atorvastatin
#HTN
- cont labetalol and restart amlodipine
DVT prophylaxis- heparin
CODE STATUS: Full code
Dispo-will need SNF on DC CM actively involved patient being resistant DC placed and recinded
Time spent coordinating care, review of plan of care with resident, counseling re need to go to SNF, review of records, med rec, consults, notes, labs, rads, DC planning, d/w nursing and CM extensively � 58 mins
Original Note:
Today's Communication/Plan
-
Discharge planning
Assessment / Plan
Assessment / Plan
Acute problems
Sepsis
Right lower lobe pneumonia
Acute on chronic anemia
Hypotension
left knee pain
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
Chronic peripheral edema
A-fib status post Watchman device
chronic iron deficiency anemia
GERD
Hyperlipidemia
#Sepsis with gram-positive cocci bacteremia
gram-positive cocci bacteremia likely contaminant
Right lower lobe pneumonia
Leukocytosis, hypotension, tachycardia, tachypnea on presentation
cxr: 08/26/2023: MODERATE CARDIOMEGALY without evidence for acute pulmonary edema. Moderate volume loss in the right lung with left to right mediastinal shift. Moderate subpleural airspace opacity in the right lower lobe which is probably scarring
or atelectasis. Small right pleural effusion or pleural thickening in the inferior right hemithorax. Moderate to large paraesophageal hiatal hernia.
- Leukocytosis now resolved
-Positive blood cx 08/25 - coagulase negative staph, possible contaminant. Repeat blood Cx 08/28 no growth to date
-Zosyn and Ceftriaxone course complete
-Vancomycin discontinued
#Acute on chronic anemia
Hemoglobin dropped to 6.9 from 10 overnight.
Repeat H&H showed normal baseline hemoglobin 10.2
-Likely lab error
-Stop Q4 H&H
-Monitor CBC
#Hypotension
Secondary to sepsis
-Resolved, IVF discontinued
-hold hydrochlorothiazide for JETHRO
Joint pain
-History of multiple joint replacements
-Knee pain: knee x-ray 08/27/2023: Right total knee replacement with small suprapatellar joint effusion
-Unlikely septic joint
-Right foot pain resolved
-PT evaluation, recommends SNF rehab
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
Improved, CR 1.5. Unknown baseline. Last known cr 1.4 in 2020
- Likely prerenal
- Hold hydrochlorothiazide
Elevated transaminases:
Billirubin stable
-Hold statin
#Chronic peripheral edema
-Bilateral peripheral vascular ultrasound negative for DVT
#A-fib + RVR status post Watchman device
-Continue labetalol
-Continue aspirin 81 mg
-Continue Metoprolol tartrate 5mg IV for HR>120
#chronic anemia
Chronic, at baseline
Iron panel: likely component of anemia of chronic disease
Recent history of dark stools
GI consult: Egd 08/27 showed tortuous esophagus, large haital hernia, no ulcers
#GERD
Continue home equivalent ppi, calcium carbonate
#Hyperlipidemia
hold atorvastatin for elevated transaminases
#HTN
Continue labetalol
DVT prophylaxis heparin
CODE STATUS: Full code
Dispo: Discharge to SNF
Anticipated Discharge: Today
Subjective/Interval History
-
Date of Service: August 31, 2023
Pt has no complaints. No acute events overnights
Objective Data
-
Labs:
Laboratory Results
08/31/23
06:29
WBC 6.6
Hgb 9.0 L
Hct 29.0 L
Plt Count 504 H D
Sodium 140
Potassium 3.9
Chloride 111 H
Carbon Dioxide 20 L
BUN 35 H
Creatinine 1.3 H
Glucose 100 H
Calcium 10.4 H
Vital Signs:
Vital Signs
Temp Pulse Resp BP Pulse Ox
97.8 F 100 16 151/95 98
08/31/23 07:31 08/31/23 08:07 08/31/23 07:31 08/31/23 08:07 08/31/23 07:31
I&O
08/30/23 08/31/23 09/01/23
06:59 06:59 06:59
Intake Total 630 / 630 760 / 760
Balance 630 / 630 760 / 760
Review of Systems
-
History Source: Patient
Constitutional: Reports No Symptoms
Respiratory: Reports No Symptoms; Denies Cough or Trouble Breathing
Cardiac: Denies Chest Pain or Syncope
Abdomen/GI: Reports No Symptoms; Denies Abdominal Pain, Diarrhea or Constipated
Genitourinary: Reports No Symptoms; Denies Dysuria or Difficulty Voiding
Musculoskeletal: Reports No Symptoms, Edema and Other (foot 'soreness', no pain); Denies Joint Pain
Neuro: Denies Dizzy or Headache
Physical Exam
-
General: No Apparent Distress and Comfortable; Negative Respiratory Distress
HEENT: Normocephalic, Atraumatic and Moist Mucous Membranes
Respiratory: Clear to Auscultation and Non Labored Respirations; Negative Wheezes, Rales, Rhonchi, Crackles or Accessory Resp Muscle Use
Cardiac: S1/S2 and Irregular Rhythm; Negative Murmur or Calf Tenderness
GI: Soft, Nontender, Nondistended and Normal Bowel Sounds
Musculoskeletal: No Clubbing, No Cyanosis, Edema, Right Lower Extrem and Edema, Left Lower Extrem
Skin: Warm and Dry
Neuro: Awake, Alert and Oriented
Psych: Calm and Confused
[2023-08-31 15:54] VITALS: BP 144/82
--- NOTE | 2023-08-31 16:00 | CM ---
Spoke with resident who stated that patient is medically cleared for discharge. Spoke with Randa in admissions at [facility] to confirm bed availability. She stated that a bed would be available Sunday/Sunday. Patient is [employer] so will need
authorization.
Met with patient who stated that she did not want to transfer to [facility]. Per previous CM notes, patient selected: [facility], [facility], [facility]. [facility] offered a bed. Patient stated that she wanted to go to [facility],
[place]. Explanation provided to patient that she is referring to an acute rehab. Patient stated that is where she wants to go. Explanation provided that indication is for her to go to a SNF. Patient asked why she would be unable to go to acute.
Provided overview as to SNF level of care and acute level and why it was indicated that she go to skilled as she would not meet the criteria. Patient stated that she has Anemia and that should qualify her.
Spoke with LENI Conn, who stated that patient is recommended for skilled.
Placed a call to [facility] in [place] and spoke with a receptionist telephone operator who verified that they have acute rehab only.
Went back in to see patient to update that she needed to choose a different facility but she had to use the commode and asked CM to leave. RN stated about 15 minutes later that she was upset that CM did not go back in to see her yet. Went back in to
see patient and she was asleep. Called her name several times, loudly, and she would not open her eyes.
Spoke with previous CM who met with patient and stated that as patient was not cooperative with her initially, she called patient's daughter, however, patient's daughter defers back to patient.
Updated resident. If she is still refusing to pick facility will get authorization started for [facility] as she did choose that facility earlier in the week.
Plan: Case management will continue to follow and assist with discharge planning. SNF.
[2023-08-31] MEDS: LIPITOR 10 MG PO (20:22)
[2023-08-31] MEDS: ASPIR LOW (ENTERIC COATED) 81 MG PO (20:22)
[2023-08-31 23:00] VITALS: BP 147/91
[2023-09-01 06:00] VITALS: BMI 34.1
[2023-09-01 07:36] LABS: Hemoglobin 8.9 g/dL (12.0-16.0); Mean Corp Hgb Conc. 31.8 g/dL (33.0-37.0); Mean Corpuscular Hgb 24.8 pg (27.0-31.0); Mean Platelet Volume 9.9 fL (7.4-10.4); Platelet Count 516 10^3/uL (130-400); Red Blood Cell Count 3.59 10^6/uL (4.20-5.40); Red Cell Dist. Width 14.8 % (11.5-14.5)
[2023-09-01 07:44] VITALS: BP 167/92
[2023-09-01] MEDS: NORVASC 5 MG PO (08:09)
[2023-09-01] MEDS: TRANDATE 400 MG PO ×2 (08:09→21:00)
[2023-09-01] MEDS: B COMPLEX w/VITAMIN C 1 CAPLET PO (08:09)
[2023-09-01] MEDS: VITAMIN D3 (cholecalciferol) 50 MCG PO (08:09)
[2023-09-01] MEDS: VITAMIN C 1000 MG PO (08:09)
[2023-09-01] MEDS: OSCAL CAL 500 500 MG PO (08:09)
[2023-09-01] MEDS: PROTONIX 20 MG PO (08:09)
[2023-09-01] MEDS: HEPARIN 5000 UNITS SC ×2 (08:09→21:00)
[2023-09-01 08:11] LABS: Blood Urea Nitrogen 29 mg/dl (7-17); Calcium 10.9 mg/dl (8.4-10.2); Carbon Dioxide 20 mmol/L (22-30); Chloride 111 mmol/L (98-107); Estimated Creatinine Clearance 38 ml/min; Glucose 99 mg/dl (70-99); Potassium 3.7 mmol/L (3.5-5.1); Sodium 141 mmol/L (135-145); eGFR 49.86
[2023-09-01 15:45] VITALS: BP 146/93
--- NOTE | 2023-09-01 16:23 | W.PN.HOSP.TC ---
Today's Communication/Plan
-
SNF placement pending
Assessment / Plan
Assessment / Plan
Physical Exam
General: Not in acute distress
HEENT: Normocephalic
Respiratory: Clear to Auscultation and Non Labored Respirations
Cardiac: S1/S2 and Irregular Rhythm
GI: Soft, Nontender, Nondistended and Normal Bowel Sounds
Musculoskeletal: No Cyanosis, Edema, Right Lower Extrem and Edema, Left Lower Extrem
Skin: Warm and Dry
Neuro: Awake, Alert and Oriented
Psych: Calm and Confused

Assessment/Plan
Acute problems
Sepsis
Right lower lobe pneumonia
Acute on chronic anemia
Hypotension
left knee pain
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
Chronic peripheral edema
A-fib status post Watchman device
chronic iron deficiency anemia
GERD
Hyperlipidemia
# Sepsis secondary to PNA
- Remains afebrile, no leukocytosis at this time
- GPC bacteremia/contaminant
- repeat blood cx 08/28 - NGTD
- chest CT- 08/25- Small right and tiny left pleural effusions.
- Mild right lower lobe consolidation
- completed course of abx
- DC IV fluids
- DC vanco DC zosyn
- Follow CBC
- Follow temperature curve
- leukocytosis resolved
- ID input greatly appreciated
# Rapid A-fib with RVR status post Watchman device
- monitor on tele
- resolved
- cont labetalol
- cont aspirin
#Acute on chronic anemia h/o melena s/p steroid use
- initially hb dropped to 6.9 from 10 overnight-lab error.
- Repeat H&H showed normal baseline
- EGD- 08/27- large hiatal hernia otherwise normal esophagus
- PPI gtt was discontinued
- cont home PPI
- hb stable
#Hypotension
- resolved
- DC fluids
- Hold hydrochlorothiazide
- Continue amlodipine
#left knee pain
- History of knee replacement
- check knee x-ray - no fx
- PT OT
#JETHRO on CKD stage III
- resolved
- cr 1.1
- Likely prerenal
- DC IVF
- Hold hydrochlorothiazide
#Chronic peripheral edema
-Bilateral peripheral vascular ultrasound negative for DVT
# Transaminitis-
- likely chronic
- hold atorvastatin
#GERD
-restart PPI, calcium carbonate
#Hyperlipidemia
- hold atorvastatin
#HTN
- cont labetalol and continue amlodipine
DVT prophylaxis- heparin
CODE STATUS: Full code
Anticipated Discharge: > 48 hours
Subjective/Interval History
-
Date of Service: September 01, 2023
Patient was seen and examined. No new fever, chest pain, shortness of breath or any other complaints.
Objective Data
-
Labs:
Laboratory Results
09/01/23
06:23
WBC 6.0
Hgb 8.9 L
Hct 28.0 L
Plt Count 516 H
Sodium 141
Potassium 3.7
Chloride 111 H
Carbon Dioxide 20 L
BUN 29 H
Creatinine 1.1 H
Glucose 99
Calcium 10.9 H
Vital Signs:
Vital Signs
Temp Pulse Resp BP Pulse Ox
97.9 F 106 16 146/93 98
09/01/23 15:45 09/01/23 15:45 09/01/23 15:45 09/01/23 15:45 09/01/23 15:45
I&O
08/31/23 09/01/23 09/02/23
06:59 06:59 06:59
Intake Total 760 / 760 1140 / 1140
Balance 760 / 760 1140 / 1140
[2023-09-01] MEDS: LIPITOR 10 MG PO (21:00)
[2023-09-01] MEDS: ASPIR LOW (ENTERIC COATED) 81 MG PO (21:00)
[2023-09-01 23:46] VITALS: BP 146/89
[2023-09-02 06:00] VITALS: BMI 33.7
[2023-09-02 07:10] VITALS: BP 151/86
[2023-09-02] MEDS: VITAMIN C 1000 MG PO (10:25)
[2023-09-02] MEDS: B COMPLEX w/VITAMIN C 1 CAPLET PO (10:25)
[2023-09-02] MEDS: NORVASC 5 MG PO (10:32)
[2023-09-02] MEDS: VITAMIN D3 (cholecalciferol) 50 MCG PO (10:32)
[2023-09-02] MEDS: TRANDATE 400 MG PO ×2 (10:33→19:58)
[2023-09-02] MEDS: HEPARIN 5000 UNITS SC ×2 (10:33→19:57)
[2023-09-02] MEDS: OSCAL CAL 500 500 MG PO (10:34)
--- NOTE | 2023-09-02 10:35 | CM ---
SW sat with pt and talked about dc planning.
Pt was initially difficult and skeptical of SW intentions, but did open up and discuss options with SW.
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
Pt has 4 daughters with Fragile X syndrome. Pt says they all have different levels of cognitive function, but pt is their advocate and main support system.
Pt is solely focused on getting better for them which is her reason for wanting [facility].
SW explained [facility]'s level of care vs SNF. Pt understands, but still feels she needs the max therapy to improve in order to get home.
SW did get pt to point of talking about SNF facilities. Pt lives in [place], but her daughters live in [place]. Pt says only [address] and pt would like to go to a facility that her daughters can get to easily.
Pt has Medicare listing for facilities that are close to [place], and SW provided list of facilities close to [place].
CHEYENNE asked if pt has a support system for herself, and she says she has friends but up until now she has been independent and has not needed help. She is working through reality of planning for herself and daughters futures.
PLAN; continue to support dc planning and SNF placement
[2023-09-02] MEDS: PROTONIX 20 MG PO (10:38)
--- NOTE | 2023-09-02 14:00 | W.PN.HOSP.TC ---
Today's Communication/Plan
-
Discharge planning. vehicle leasing and rental manager has placed referrals.
Assessment / Plan
Assessment / Plan
Physical Exam
General: Not in acute distress
HEENT: Normocephalic
Respiratory: Clear to Auscultation and Non Labored Respirations
Cardiac: S1/S2 and Irregular Rhythm
GI: Soft, Nontender, Nondistended and Normal Bowel Sounds
Musculoskeletal: No Cyanosis, Edema, Right Lower Extrem and Edema, Left Lower Extrem
Skin: Warm and Dry
Neuro: Awake, Alert and Oriented
Psych: Calm and Confused

Assessment/Plan
Acute problems
Sepsis
Right lower lobe pneumonia
Acute on chronic anemia
Hypotension
left knee pain
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
Chronic peripheral edema
A-fib status post Watchman device
chronic iron deficiency anemia
GERD
Hyperlipidemia
# Sepsis secondary to PNA
- Remains afebrile, no leukocytosis on most recent labwork
- GPC bacteremia/contaminant
- repeat blood cx / - NGTD
- chest CT- 08/25- Small right and tiny left pleural effusions.
- Mild right lower lobe consolidation
- completed course of abx
- DC IV fluids previously
- DC vanco DC zosyn previously
- Follow CBC
- Follow temperature curve
- leukocytosis resolved
- ID input greatly appreciated
# Rapid A-fib with RVR status post Watchman device
- monitor on tele
- resolved
- cont labetalol
- cont aspirin
#Acute on chronic anemia h/o melena s/p steroid use
- initially hb dropped to 6.9 from 10 overnight-lab error.
- Repeat H&H showed normal baseline
- EGD- 6/4- large hiatal hernia otherwise normal esophagus
- PPI gtt was discontinued
- cont home PPI
- hb stable
#Hypotension
- resolved
- DC fluids
- Hold hydrochlorothiazide
- Continue amlodipine
#left knee pain
- History of knee replacement
- check knee x-ray - no fx
- PT OT
#JETHRO on CKD stage III
- resolved
- cr 1.1
- Likely prerenal
- DC IVF
- Hold hydrochlorothiazide
#Chronic peripheral edema
-Bilateral peripheral vascular ultrasound negative for DVT
# Transaminitis-
- likely chronic
- hold atorvastatin
#GERD
-restart PPI, calcium carbonate
#Hyperlipidemia
- hold atorvastatin
#HTN
- cont labetalol and continue amlodipine
DVT prophylaxis- heparin
CODE STATUS: Full code
Anticipated Discharge: 24 - 48 hours
Subjective/Interval History
-
Date of Service: September 02, 2023
Patient was seen and examined. She denied any new significant symptoms or complaints.
Objective Data
-
Vital Signs:
Vital Signs
Temp Pulse Resp BP Pulse Ox
98.5 F 85 20 151/86 97
09/02/23 07:10 09/02/23 07:10 09/02/23 07:10 09/02/23 07:10 09/02/23 07:10
I&O
09/01/23 09/02/23 09/03/23
06:59 06:59 06:59
Intake Total 1140 / 1140 900 / 900
Balance 1140 / 1140 900 / 900
[2023-09-02 15:38] VITALS: BP 137/85
[2023-09-02] MEDS: ASPIR LOW (ENTERIC COATED) 81 MG PO (21:07)
[2023-09-02] MEDS: LIPITOR 10 MG PO (21:07)
[2023-09-02 23:15] VITALS: BP 135/88
[2023-09-03 05:05] VITALS: BMI 33.7
[2023-09-03 07:00] VITALS: BP 143/85
[2023-09-03 07:57] LABS: % Basophils 0.6 % (0-2); % Eosinophils 3.2 % (0-6); % Immature Granulocytes 0.6 % (0-0.5); % Lymphocytes 26.9 % (20.5-51.1); % Monocytes 8.5 % (1.7-9.3); % Neutrophils 60.2 % (42.2-75.2); Absolute Eosinophils 0.2 10^3/uL (0-0.7); Absolute Lymphocytes 1.4 10^3/uL (1.2-3.4); Absolute Monocytes 0.5 10^3/uL (0.1-0.6); Absolute Neutrophils 3.2 10^3/uL (1.4-6.5); Hematocrit 28.9 % (37.0-47.0); Hemoglobin 9.1 g/dL (12.0-16.0); Mean Corp Hgb Conc. 31.5 g/dL (33.0-37.0); Mean Corpuscular Hgb 24.5 pg (27.0-31.0); Mean Corpuscular Volume 77.7 fL (81.0-99.0); Mean Platelet Volume 9.2 fL (7.4-10.4); Nucleated Red Blood Cells % 0 %; Platelet Count 550 10^3/uL (130-400); Red Blood Cell Count 3.72 10^6/uL (4.20-5.40); Red Cell Dist. Width 15.3 % (11.5-14.5); White Blood Cell Count 5.3 10^3/uL (4.8-10.8)
[2023-09-03] MEDS: TRANDATE 400 MG PO ×2 (09:21→21:03)
[2023-09-03] MEDS: VITAMIN D3 (cholecalciferol) 50 MCG PO (09:21)
[2023-09-03] MEDS: NORVASC 5 MG PO (09:21)
[2023-09-03] MEDS: HEPARIN 5000 UNITS SC ×2 (09:21→21:02)
[2023-09-03] MEDS: OSCAL CAL 500 500 MG PO (09:21)
[2023-09-03] MEDS: B COMPLEX w/VITAMIN C 1 CAPLET PO (09:21)
[2023-09-03] MEDS: VITAMIN C 1000 MG PO (09:21)
[2023-09-03] MEDS: PROTONIX 20 MG PO (09:25)
[2023-09-03 09:41] VITALS: BP 159/83; BP 174/84; PULSE 93; O2SAT 99
[2023-09-03 09:55] VITALS: BP 159/83; PULSE 93
[2023-09-03 11:19] LABS: ALT (SGPT) 33 U/L (0-35); AST (SGOT) 37 U/L (14-36); Albumin 2.9 g/dl (3.5-5.0); Alkaline Phosphatase 148 U/L (38-126); Blood Urea Nitrogen 27 mg/dl (7-17); Carbon Dioxide 25 mmol/L (22-30); Chloride 109 mmol/L (98-107); Estimated Creatinine Clearance 37 ml/min; Glucose 100 mg/dl (70-99); Potassium 4.3 mmol/L (3.5-5.1); Sodium 142 mmol/L (135-145); Total Bilirubin 0.3 mg/dl (0.2-1.3); Total Protein 5.5 g/dl (6.3-8.2); eGFR 49.86
--- NOTE | 2023-09-03 13:13 | CM ---
Reviewed chart. Met with patient to f/u on SNF list that was provided to her yesterday by previous CM on case. Patient stated that she looked at list however she wants to go to acute rehab. Explanation was again provided to patient that the
indication is for skilled therapy not for acute rehab. Patient stated that she wanted to go [facility]. Explanation provided that they do not have skilled rehab there. She stated that she has good insurance that will cover it. Advised patient that the
indication is for skilled, and that is the appropriate level of therapy for her to receive per medical staff. Patient stated that she would go to [facility]. Patient was asked if she would pick 2nd, 3rd options and she declined.
Placed a call to [facility] and spoke with Analia in admissions who asked that referral be faxed to her at, as she does not use [facility]. She stated that she should have a bed tomorrow.
Faxed referral to number above.
Plan: Case management will continue to follow and assist with discharge planning. Hopeful transfer to [facility] once acceptance is rendered.
--- NOTE | 2023-09-03 14:01 | W.PN.HOSP.TC ---
Today's Communication/Plan
-
discharge planning for rehab
likely in AM per discussion with CM
Assessment / Plan
Assessment / Plan
# Sepsis secondary to PNA
- Remains afebrile, no leukocytosis on most recent labwork
- GPC bacteremia/contaminant
- repeat blood cx 08/28 - NGTD
- chest CT- 08/25- Small right and tiny left pleural effusions. Mild right lower lobe consolidation
- completed course of abx
# Rapid A-fib with RVR status post Watchman device
- monitor on tele
- continue asa/labetalol
#Acute on chronic anemia
h/o melena s/p steroid use
- EGD- 08/27- large hiatal hernia otherwise normal esophagus
- PPI gtt was discontinued
- cont home PPI
#Hypotension episode
- resolved
- Hold hydrochlorothiazide, Continue amlodipine
#left knee pain
- History of knee replacement
- knee x-ray - no fx
- PT OT recommended snf rehab
#JETHRO on CKD stage III
- resolved
#Chronic peripheral edema
-Bilateral peripheral vascular ultrasound negative for DVT
# Transaminitis
- likely chronic
- hold atorvastatin
#GERD
-restart PPI, calcium carbonate
#Hyperlipidemia
- hold atorvastatin
#Essential HTN
- cont labetalol and continue amlodipine
DVT prophylaxis- heparin
CODE STATUS: Full code
Anticipated Discharge: Within 24 hours
Subjective/Interval History
-
Date of Service: September 03, 2023
Patient upset over not able to get rehab placement
Also requesting longer physical therapy in hospital
Denies any other medical issues
Objective Data
-
Labs:
Laboratory Results
09/03/23
07:36
WBC 5.3
Hgb 9.1 L
Hct 28.9 L
Plt Count 550 H
Sodium 142
Potassium 4.3
Chloride 109 H
Carbon Dioxide 25
BUN 27 H
Creatinine 1.1 H
Glucose 100 H
Calcium 11.0 H
Total Bilirubin 0.3
AST 37 H
ALT 33
Alkaline Phosphatase 148 H
Vital Signs:
Vital Signs
Temp Pulse Resp BP Pulse Ox
97.8 F 92 17 143/85 96
09/03/23 07:00 09/03/23 07:00 09/03/23 07:00 09/03/23 07:00 09/03/23 07:00
I&O
09/02/23 09/03/23 09/04/23
06:59 06:59 06:59
Intake Total 900 / 900 1000 / 1000
Balance 900 / 900 1000 / 1000
Review of Systems
-
Respiratory: Reports No Symptoms
Cardiac: Reports No Symptoms
Abdomen/GI: Reports No Symptoms
Physical Exam
-
General: Obese
HEENT: Negative Oxygen
Neuro: Awake, Alert and Oriented
Psych: Calm
[2023-09-03 15:00] VITALS: BP 140/86
[2023-09-03] MEDS: LIPITOR 10 MG PO (21:03)
[2023-09-03] MEDS: ASPIR LOW (ENTERIC COATED) 81 MG PO (21:03)
[2023-09-03 23:57] VITALS: BP 134/77
[2023-09-04 06:03] VITALS: BMI 33.7
[2023-09-04 07:00] VITALS: BP 163/98
[2023-09-04] MEDS: OSCAL CAL 500 500 MG PO (08:39)
[2023-09-04] MEDS: TRANDATE 400 MG PO ×2 (08:39→20:15)
[2023-09-04] MEDS: NORVASC 5 MG PO (08:39)
[2023-09-04] MEDS: PROTONIX 20 MG PO (08:39)
[2023-09-04] MEDS: B COMPLEX w/VITAMIN C 1 CAPLET PO (08:39)
[2023-09-04] MEDS: HEPARIN 5000 UNITS SC ×2 (08:39→20:18)
[2023-09-04] MEDS: VITAMIN C 1000 MG PO (08:39)
[2023-09-04] MEDS: VITAMIN D3 (cholecalciferol) 50 MCG PO (08:40)
--- NOTE | 2023-09-04 11:57 | CM ---
Addendum entered by KARLY Welsh 09/04/23 16:50:
Received return call back from Analia from [facility] who stated that she does not have a bed for patient. Placed a call to Randa in admissions at [facility] however had to leave a voice mail. Will update attending that bed isn't
available today.
Original Note:
Spoke with attending, patient is medically stable for discharge. Placed a call to Analia in admissions at [facility] to confirm that she received referral, and determine bed availability for today. Will await return call.
Plan: Case management will continue to follow and assist with discharge planning. SNF when bed is available.
[2023-09-04 12:00] VITALS: BP 146/95; PULSE 85
--- NOTE | 2023-09-04 13:03 | W.PN.HOSP.TC ---
Today's Communication/Plan
-
d/c snf rehab
Assessment / Plan
Assessment / Plan
# Sepsis secondary to PNA
- Remains afebrile, no leukocytosis on most recent labwork
- GPC bacteremia/contaminant
- repeat blood cx 08/28 - NGTD
- chest CT- 08/25- Small right and tiny left pleural effusions. Mild right lower lobe consolidation
- completed course of abx
# Rapid A-fib with RVR status post Watchman device
- monitor on tele
- continue asa/labetalol
#Acute on chronic anemia
h/o melena s/p steroid use
- EGD- 08/27- large hiatal hernia otherwise normal esophagus
- PPI gtt was discontinued
- cont home PPI
# Hypotension episode
- resolved
- Hold hydrochlorothiazide, Continue amlodipine
#left knee pain
- History of knee replacement
- knee x-ray - no fx
- PT OT recommended snf rehab
#JETHRO on CKD stage III
- resolved
#Chronic peripheral edema
-Bilateral peripheral vascular ultrasound negative for DVT
# Transaminitis
- likely chronic
- hold atorvastatin
#GERD
-restart PPI, calcium carbonate
#Hyperlipidemia
- hold atorvastatin
#Essential HTN
- cont labetalol and continue amlodipine
DVT prophylaxis- heparin
CODE STATUS: Full code
Anticipated Discharge: Within 24 hours
Subjective/Interval History
-
Date of Service: September 04, 2023
no issues overnight
Objective Data
-
Vital Signs:
Vital Signs
Temp Pulse Resp BP Pulse Ox
97.8 F 83 17 163/98 97
09/04/23 07:00 09/04/23 07:00 09/04/23 07:00 09/04/23 07:00 09/04/23 07:00
I&O
09/03/23 09/04/23 09/05/23
06:59 06:59 06:59
Intake Total 1000 / 1000 480 / 480
Balance 1000 / 1000 480 / 480
Review of Systems
-
Respiratory: Reports No Symptoms
Cardiac: Reports No Symptoms
Abdomen/GI: Reports No Symptoms
Physical Exam
-
General: Obese
HEENT: Negative Oxygen
Neuro: Awake, Alert and Oriented
Psych: Calm
[2023-09-04 15:14] VITALS: BP 157/72
--- NOTE | 2023-09-04 17:21 | PTCARENOTE ---
Communicated with CM after discharge order put in, CM reached out to SNF with no return call back. CM will try other SNF's in area. made aware that Pt will not be leaving today, awaiting for call back from facilities.
[2023-09-04] MEDS: LIPITOR 10 MG PO (21:02)
[2023-09-04] MEDS: ASPIR LOW (ENTERIC COATED) 81 MG PO (21:02)
[2023-09-04 23:20] VITALS: BP 138/83
[2023-09-05 06:00] VITALS: BMI 33.7
[2023-09-05 07:00] VITALS: BP 151/90
[2023-09-05] MEDS: VITAMIN C 1000 MG PO (09:02)
[2023-09-05] MEDS: TRANDATE 400 MG PO (09:02)
[2023-09-05] MEDS: B COMPLEX w/VITAMIN C 1 CAPLET PO (09:02)
[2023-09-05] MEDS: NORVASC 5 MG PO (09:02)
[2023-09-05] MEDS: VITAMIN D3 (cholecalciferol) 50 MCG PO (09:02)
[2023-09-05] MEDS: OSCAL CAL 500 500 MG PO (09:02)
[2023-09-05] MEDS: PROTONIX 20 MG PO (09:02)
[2023-09-05] MEDS: HEPARIN 5000 UNITS SC (09:03)
--- NOTE | 2023-09-05 12:01 | CM ---
Reviewed chart. Spoke with Randa in admissions at [facility], [facility], [facility] and [facility]. Randa confirmed that she can take patient at [facility], today, as she is medically cleared for discharge. Met with patient to review
accepting facility. Patient stated that there is no circumstance of which she would consider going to any facility in the [place] area. Referrals have been made in [place]. Reviewed facilities that expressed that they could accept patient in [place]. None
expressed that they could accept, except for [facility] in [place]. Placed a call to admissions at [facility] and spoke with Socorro ([phone]) who stated that she could accept patient pending authorization.
Met with patient to update. She stated that she refused to go to that facility as she heard that there have been bad reviews. Patient asked again about a few facilities of which did not have availability for her, per allscripts, and CM reiterated
facilities that can take her and the ones that would be unable. Patient stated in frustration that every facility she would consider is full or unable to take her.
Patient stated that she has long term care social worker care insurance and she can call to arrange for caregivers. Discussed VN services as indication is for patient to to rehab. Patient stated that she would consider VN of [facility] as they had just been out
for her adult daughter and she liked them, and implementing caregivers through her insurance policy.
Patient understands that the indication on behalf of medical staff is for SNF but she would not agree to transfer to any facility that could provide acceptance, Therefore, placed a tiffani to of [facility] [phone] and spoke with a
manufacturers service representative named Bushra, who stated that they would be able to see patient.
Met with patient again who was on hold with her insurance company to speak to someone about detention care. Advised her that the VN of her choice was able to render acceptance. Patient stated that as that is the case, she would like to go home
despite indication for SNF.
Verified patient address. Provided transfer sheet and medical necessity form to medical unit secretary. RN stated that she will get patient ready to leave.
Plan: Case management will continue to follow and assist with discharge planning. Patient opting to return home which she knows is against medical advisement, with VN services.
--- NOTE | 2023-09-05 12:47 | CM ---
Addendum entered by Melissa Victor, [facility] 09/06/23 09:21:
Late entry note. Called [facility] and spoke with a inbound sales representative, named Bushra. Advised her that patient may need a walker as she had one from the hospital but it was returned. She stated that she will have PT evaluate and if she does
not have one they will order one on her behalf.
Original Note:
Reviewed chart, reviewed accepting facilities with patient and she was firm that she would not transfer to anywhere in [place]. The facilities she chose in [place] are full or did not render acceptance. Placed a call to [facility] [phone]
which stated through Allscripts that they need more information. Called admissions there and spoke with Socorro who confirmed that she could accept patient today. Met with patient who refused to transfer there. She asked about facilities who have not
offered acceptance, therefore reiterated that they do not have availability. Advised patient that she is medically cleared for discharge and therefore choice has to be made between the facilities that offered acceptance. Patient stated that she
would like to return home. She was advised that this would be against medical advisement as the indication is for rehab. 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 She stated that she would arrange for that and
agreed to VN services through [facility].
Placed a call to [facility] and spoke with a inbound sales representative named, Bushra, who confirmed that they can see patient. Referral made and requested, VN, PT, OT, CANINE DEPUTY, and SW.
Advised patient that agency can see her. Patient confirmed that she would rather go home than chose a facility that has rendered acceptance. It was made clear by multiple disciplines that home is not the advisement.
Patient acknowledged this but still would not agree to transfer to an available SNF.
Confirmed patient's address with her. Completed medical necessity form and transfer sheet. Patient completed IMM. It is signed and on chart.
Plan: Case management will continue to follow and assist with discharge planning. Home with VN (against med advisement.
[2023-09-05 13:00] VITALS: BP 140/84
--- NOTE | 2023-09-05 15:47 | W.PN.HOSP.TC ---
Today's Communication/Plan
-
d/c home with VN
Assessment / Plan
Assessment / Plan
# Sepsis secondary to PNA
- Remains afebrile, no leukocytosis on most recent labwork
- GPC bacteremia/contaminant
- repeat blood cx 08/28 - NGTD
- chest CT- 08/25- Small right and tiny left pleural effusions. Mild right lower lobe consolidation
- completed course of abx
# Rapid A-fib with RVR status post Watchman device
- monitor on tele
- continue asa/labetalol
#Acute on chronic anemia
h/o melena s/p steroid use
- EGD- 08/27- large hiatal hernia otherwise normal esophagus
- PPI gtt was discontinued
- cont home PPI
# Hypotension episode
- resolved
- Hold hydrochlorothiazide, Continue amlodipine
#left knee pain
- History of knee replacement
- knee x-ray - no fx
- PT OT recommended snf rehab
#JETHRO on CKD stage III
- resolved
#Chronic peripheral edema
-Bilateral peripheral vascular ultrasound negative for DVT
# Transaminitis
- likely chronic
- hold atorvastatin
#GERD
-restart PPI, calcium carbonate
#Hyperlipidemia
- hold atorvastatin
#Essential HTN
- cont labetalol and continue amlodipine
DVT prophylaxis- heparin
CODE STATUS: Full code
Patient preferred rehab facility does not have a bed and patient not willing to go to any other facility. Patient preferred to go home with VN care. High risk for readmission secondary to fall and further complication
Anticipated Discharge: Today
Subjective/Interval History
-
Date of Service: September 05, 2023
no issues
Objective Data
-
Vital Signs:
Vital Signs
Temp Pulse Resp BP Pulse Ox
97.8 F 82 17 151/90 98
06/12/24 07:00 09/05/23 07:00 09/05/23 07:00 09/05/23 07:00 09/05/23 07:00
I&O
09/04/23 09/05/23 09/06/23
06:59 06:59 06:59
Intake Total 480 / 480 960 / 960
Balance 480 / 480 960 / 960
Review of Systems
-
Respiratory: Reports No Symptoms
Cardiac: Reports No Symptoms
Abdomen/GI: Reports No Symptoms
Physical Exam
-
General: Comfortable and Obese
Neuro: Awake, Alert and No Motor Deficits
--- NOTE | 2023-09-05 17:58 | W.DCSUMMARY ---
Discharge Summary
Discharge Data
Date of Admission: 08/26/23
Date of Discharge: 09/05/23
-
Pending Results: No
Hospital Course
Discharging Physician : Dr Ranjeet Guerin
Disposition : Home with VN
Primary care physician : Dr Ede miller
Principal Discharge diagnosis :
Sepsis secondary to pneumonia
Paroxysmal atrial fibrillation
Acute on chronic anemia
Acute kidney urine CKD stage III
Episode of hypotension
Chronic Discharge diagnosis :
History of gastrointestinal bleed
History of Watchman device placement
Chronic peripheral edema
Suspected chronic transaminitis
Gastroesophageal reflux disease
Hyperlipidemia
Essential hypertension
Hospital Course :
Patient is a 82-year-old female with above-mentioned past medical history came to ER with new onset of cough and nasal congestion for several days. Patient was started on azithromycin and had took 4 days of antibiotic without much relief. Patient
was also feeling progressively weak and came to ER for further evaluation.
Evaluation in ER showing patient having new pneumonia. A CT chest showing right lower lobe consultation and small bilateral pleural effusion. Patient was felt to be septic as well and was started on broad-spectrum antibiotics. Blood cultures were
collected which later identified gram-positive cocci and was found to be contaminant. Patient finished course of antibiotics in the hospital.
Patient also was noted to having new worsening anemia and gastroenterology was involved in care. Patient underwent an EGD which showed hiatal hernia without any provide peptic ulcer disease. Patient was maintained on PPI therapy and was discharged
on it.
For patient ambulatory dysfunction, evaluated by physical therapy and was appropriate for rehab placement. Patient was having some left knee pain and x-ray did not show any fracture. Patient have left knee replaced and no problem with prosthetic
joint. Patient choice of rehab facility did not have bed and patient decided to go home with VNA care. Patient is high risk for fall and further complication and repeat admission from this.
Important imaging findings :
None
Procedure findings :
None
Discharge Plan
-
Patient Disposition: Penitentiary/SNF
Discharge Diagnosis/Procedures: Sepsis secondary to pneumonia, Afib with RVR
Condition: Good
Diet: No restrictions
Activity: As tolerated
Driving Restrictions: As prior to admission
Bathing Restrictions: None
Referrals:
UNKNOWN - PT DOES,NOT KNOW [Family Provider] -
Prescriptions:
Continued
labetalol 200 mg Tablet
400 mg PO BID Qty: 0
ascorbic acid (vitamin C) [Vitamin C] 500 mg Tablet
1,000 mg PO DAILY Qty: 0
simvastatin 20 MG tablet
20 mg PO HS
omeprazole 20 MG capsule,delayed release(DR/EC)
20 mg PO DAILY
vitamin B complex 1 TAB tablet
1 tab PO DAILY
cholecalciferol (vitamin D3) 25 mcg (1,000 unit) Tablet
50 mcg PO DAILY Qty: 0
levocetirizine [Xyzal] 5 MG tablet
5 mg PO DAILYPRN PRN (Reason: allergies)
calcium carbonate 600 MG tablet
600 mg PO DAILY
amlodipine 5 MG tablet
5 mg PO DAILY Qty: 0 0RF
aspirin 81 mg Tablet,Delayed Release (Dr/Ec)
81 mg PO HS
hydrochlorothiazide 12.5 mg capsule
12.5 mg PO DAILY
Discontinued
azithromycin 250 mg tablet
250 mg PO DAILY
Discharge Orders:
Discharge Patient (As Directed); Ordered 09/04/23
Ordered By: Ranjeet Guerin
Discharge Date and Time
Discharge Date/Time: 09/05/23 14:10
Print Language: ARABIC
== END 2023-09-05 14:10 | disposition home health service (06) | DRG 871 ==
LOC: 3 WEST ACU 20:44
PROVIDERS: Clinical Nurse Specialist Family Health; Hospitalist; Internal Medicine; Nurse Practitioner; Student in an Organized Health Care Education/Training Program; ADMITTING PHYSICIAN Hospitalist; ATTENDING PHYSICIAN Hospitalist; CONSULT PHYSICIAN Internal Medicine Gastroenterology; EMERGENCY PHYSICIAN Emergency Medicine; OTHER PHYSICIAN Student in an Organized Health Care Education/Training Program
PROC: 0DJ08ZZ Inspection of Upper Intestinal Tract, Via Natural or Artificial Opening Endoscopic (ICD-10-PCS; 2023-08-28)
DX: A41.1 Sepsis due to other specified staphylococcus (principal); J18.9 Pneumonia, unspecified organism; N17.9 Acute kidney failure, unspecified; D50.9 Iron deficiency anemia, unspecified; N18.32 Chronic kidney disease, stage 3b; I12.9 Hypertensive chronic kidney disease with stage 1 through stage 4 chronic kidney disease, or unspecified chronic kidney disease; E78.00 Pure hypercholesterolemia, unspecified; I48.0 Paroxysmal atrial fibrillation; I95.9 Hypotension, unspecified; J30.89 Other allergic rhinitis; K44.9 Diaphragmatic hernia without obstruction or gangrene; E86.1 Hypovolemia; M79.605 Pain in left leg; M79.604 Pain in right leg; M19.90 Unspecified osteoarthritis, unspecified site; K21.9 Gastro-esophageal reflux disease without esophagitis; E66.9 Obesity, unspecified; I89.0 Lymphedema, not elsewhere classified; R74.01 Elevation of levels of liver transaminase levels; Z66 Do not resuscitate; Z96.611 Presence of right artificial shoulder joint; Z96.641 Presence of right artificial hip joint; Z96.612 Presence of left artificial shoulder joint; Z96.653 Presence of artificial knee joint, bilateral; Z95.818 Presence of other cardiac implants and grafts; Z88.1 Allergy status to other antibiotic agents; Z88.5 Allergy status to narcotic agent; Z79.82 Long term (current) use of aspirin; Z68.33 Body mass index [BMI] 33.0-33.9, adult; Z11.52 Encounter for screening for COVID-19; Z91.81 History of falling
CPT/HCPCS: 71046; 71250; 73564; 80048; 80053; 80202; 81003; 82607; 82728; 82746; 83540; 83550; 83605; 83880; 84132; 84145; 84484; 85014; 85018; 85025; 85027; 85652; 86140; 86850; 86900; 86901; 87040; 87070; 87149; 87205; 87502; 87811; 93005; 93970; 94640; 96361; 96365; 96375; 97163; 97167; 97530; 97535; 99285